=== PATIENT | male | born 1955 | race Caucasian/White ===

== ENCOUNTER → 2019-12-18 16:00 | Outpatient (BNVA) | payer MEDICAID, SELFPAY | PROVIDERS: Family Provider Nurse Practitioner; Visit Provider Nurse Practitioner Family | DX: I10 Essential (primary) hypertension (principal); E55.9 Vitamin D deficiency, unspecified; R53.1 Weakness; F41.9 Anxiety disorder, unspecified; F32.9 Major depressive disorder, single episode, unspecified; F17.200 Nicotine dependence, unspecified, uncomplicated; M19.90 Unspecified osteoarthritis, unspecified site; J44.9 Chronic obstructive pulmonary disease, unspecified | CPT/HCPCS: 80053; 80061; 82306; 85025 ==

== ENCOUNTER 2020-03-13 06:00 | Outpatient (RCR) | payer MEDICAID, SELFPAY | END 2020-04-09 23:59 | disposition home or self-care (01) | LOC: TPT 06:00 | PROVIDERS: Referring Provider Specialist; Visit Provider Specialist | DX: G89.29 Other chronic pain (principal); M54.9 Dorsalgia, unspecified | CPT/HCPCS: 97161 ==

== ENCOUNTER → 2021-01-09 16:39 | Outpatient (BNVA) | payer MEDICAID, SELFPAY | PROVIDERS: Visit Provider Nurse Practitioner Family | DX: E55.9 Vitamin D deficiency, unspecified (principal); I10 Essential (primary) hypertension; G47.30 Sleep apnea, unspecified; F41.9 Anxiety disorder, unspecified; F32.9 Major depressive disorder, single episode, unspecified; J44.9 Chronic obstructive pulmonary disease, unspecified; L30.9 Dermatitis, unspecified | CPT/HCPCS: 80053; 80061; 82306; 82607; 84443; 85025 ==

== ENCOUNTER → 2021-08-25 15:45 | Outpatient (BNVA) | payer MEDICAID, SELFPAY | PROVIDERS: Visit Provider Nurse Practitioner Family | DX: I10 Essential (primary) hypertension (principal) | CPT/HCPCS: 80053; 80061; 82306; 82607; 84443; 85025 ==

== ENCOUNTER → 2022-07-14 16:01 | Outpatient (BNVA) | payer MEDICAID, SELFPAY | PROVIDERS: Visit Provider Nurse Practitioner Family | DX: Z23 Encounter for immunization (principal); F41.9 Anxiety disorder, unspecified; F32.9 Major depressive disorder, single episode, unspecified; I10 Essential (primary) hypertension; J44.9 Chronic obstructive pulmonary disease, unspecified; E55.9 Vitamin D deficiency, unspecified; F17.200 Nicotine dependence, unspecified, uncomplicated; M15.9 Polyosteoarthritis, unspecified; G47.10 Hypersomnia, unspecified | CPT/HCPCS: 80053; 80061; 82306; 82607; 83735; 84443; 85025 ==

== ENCOUNTER → 2023-01-11 16:25 | Outpatient (BNVA) | payer MEDICAID, SELFPAY | PROVIDERS: Visit Provider Nurse Practitioner Family | DX: Z23 Encounter for immunization (principal); F41.9 Anxiety disorder, unspecified; F32.9 Major depressive disorder, single episode, unspecified; I10 Essential (primary) hypertension; J44.9 Chronic obstructive pulmonary disease, unspecified; E55.9 Vitamin D deficiency, unspecified | CPT/HCPCS: 80053; 80061; 82306; 84443; 85025 ==

== ENCOUNTER → 2023-06-15 08:20 | Outpatient (BNVA) | payer MEDICARE, MEDICAID, SELFPAY | PROVIDERS: PCP Nurse Practitioner Family; Visit Provider Nurse Practitioner Family | DX: R53.83 Other fatigue (principal); R11.0 Nausea | CPT/HCPCS: 80053; 85025; 87400; 87426 ==

== ENCOUNTER → 2024-03-27 16:00 | Outpatient (BNVA) | payer MEDICARE, MEDICAID, SELFPAY | PROVIDERS: PCP Nurse Practitioner Family; Visit Provider Nurse Practitioner Family | DX: Z12.5 Encounter for screening for malignant neoplasm of prostate (principal); I10 Essential (primary) hypertension; E55.9 Vitamin D deficiency, unspecified | CPT/HCPCS: 80053; 80061; 82306; 82607; 83735; 84443; 85025; G0103 ==

== ENCOUNTER 2024-05-23 14:03 | Outpatient (CLI) | payer MEDICARE, MEDICAID, SELFPAY | END 2024-05-23 14:04 | disposition home or self-care (01) | PROVIDERS: PCP Nurse Practitioner Family; Visit Provider Nurse Practitioner Family | DX: G47.33 Obstructive sleep apnea (adult) (pediatric) (principal) | CPT/HCPCS: G0399 ==

== ENCOUNTER 2024-12-07 03:20 | Inpatient (IN) | payer MEDICARE, MEDICAID, SELFPAY ==
[2024-12-07] VITALS (35 sets, daily range): BP systolic 89–130; BP diastolic 54–85; PULSE 68–99; RESP 14–18; TEMP 36.2–37.3; O2SAT 90–100; BMI 17.9
--- NOTE | 2024-12-07 03:27 | XRR_ITS ---
PROCEDURE INFORMATION: Exam: XR Right Hip Exam date and time: 12/07/2024 3:40 AM Age: 69 years old Clinical indication: Injury or trauma; Fall; Blunt trauma (contusions or hematomas); Right; Hip; Additional info: Hip pain TECHNIQUE: Imaging protocol: Radiologic exam of the right hip. Views: 1 view hip with pelvis when performed. COMPARISON: MR lumbar spine wo con* [id number] 07/07/2018 3:08 PM FINDINGS: Bones/joints: Intertrochanteric right femoral fracture with coxa vara angulation. No dislocation. Soft tissues: Unremarkable. XR/XR hip RT 2-3V wo/w pel* [id number] IMPRESSION: Intertrochanteric right femoral fracture with coxa vara angulation.
--- NOTE | 2024-12-07 03:44 | ED_ITS ---
HPI - Fall 2 General: Chief Complaint: Fall Stated Complaint: fall Time Seen by Provider: 12/07/24 03:24 History of Present Illness: 69-year-old man with a history of COPD a nd hypertension who presents emergency room by ambulance after a fall with right hip pain. No head injury. No loss of consciousness. No altered mental status. No other injuries. No chest pain. No abdominal pain. Related Data Home Medications ?Medication ?Instructions ?Recorded ?Confirmed oxycodone 15 mg tablet 15 mg PO Q4H PRN 07/14/22 Previous Rx's ?Medication ?Instructions ?Recorded triamcinolone acetonide 0.1 % 1 applic topical BID 14 days #80 01/09/21 topical cream grams nitroglycerin 0.4 mg sublingual See Rx Instructions .R oute 07/20/22 tablet .COMPLEX #25 tabs folic acid 1 mg tablet See Rx Instructions .Route 0 01/11/23 .COMPLEX #30 tabs magnesium oxide 400 mg (241.3 mg See Rx Instructions . Route 01/11/23 magnesium) tablet .COMPLEX #180 tabs ondansetron HCl 8 mg tablet See Rx Instructions .Route 11/21/23 .COMPLEX #30 tabs aspirin 81 mg tablet,delayed See Rx Instructions .Rout e 01/27/24 release .COMPLEX #90 tabs albuterol sulfate 90 mcg/actuation See Rx Instructions .Route 04/10/24 aerosol inhaler (Ventolin HFA) .COMPLEX #18 grams cetirizine 10 mg tablet See Rx Instructions .Route 1 10/14/23 .COMPLEX #90 tabs baclofen 20 mg tablet See Rx Instructions .Route 1 10/30/23 .COMPLEX #180 tabs buspirone 10 mg tablet See Rx Instructions .Route 1 10/30/23 .COMPLEX #270 tabs furosemide 20 mg tablet See Rx Instructions .Route 1 10/30/23 .COMPLEX #90 tabs levetiracetam 750 mg See Rx Instructions .Route 1 10/30/23 tablet,extended release 24 hr .COMPLEX #180 tabs losartan 50 mg tablet See Rx Instructions .Route 1 10/30/23 .COMPLEX #90 tabs lovastatin 40 mg tablet See Rx Instructions .Route 1 10/30/23 .COMPLEX #90 tabs omeprazole 20 mg capsule,delayed 20 mg PO BID #180 cap s 08/30/24 release paroxetine HCl 40 mg tablet See Rx Instructions .Route 08/30/24 .COMPLEX #90 tabs potassium chloride 10 mEq See Rx Instructions .Route 1 10/30/23 capsule,extended release .COMPLEX #90 caps diphenhydramine HCl 25 mg capsule See Rx Instructions .Route 11/01/24 (Banophen) .COMPLEX #60 caps ergocalciferol (vitamin D2) 1,250 See Rx Instructions .Route 11/01/24 mcg (50,000 unit) capsule .COMPLEX #2 caps Allergies Allergy/AdvReac Type Severity Reaction Status Date / Time diclofenac (From Voltaren) Allergy Unknown UNKNOWN Verified 12/07/24 03:29 hydromorphone (From Dilaudid) Allergy Unknown RASH Verified 12/07/24 03:29 hydroxyzine Allergy Unknown SEIZURE Verified 12/07/24 03:29 varenicline (From Chantix) Allergy Unknown UNKNOWN Verified 12/07/24 03:29 venlafaxine (From Effexor) Allergy Unknown UNKNOWN Verified 12/07/24 03:29 Review of Systems 2 Narrative: Constitutional symptoms: Negative except as documented in HPI. Skin symptoms: Negative except as documented in HPI. Eye symptoms: Negative except as documented in HPI. ENMT symptoms: Negative except as documented in HPI. Respiratory symptoms: Negative except as documented in HPI. Cardiovascular symptoms: Negative except as documented in HPI. Gastrointestinal symptoms: Negative except as documented in HPI. Genitourinary symptoms: Negative except as documented in HPI. Musculoskeletal symptoms: Negative except as documented in HPI. Neurologic symptoms: Negative except as documented in HPI. Psychiatric symptoms: Negative except as documented in HPI. Endocrine symptoms: Negative except as documented in HPI. PFSH ED 2 PFSH: Medical History (Updated 12/07/24 @ 04:27 by Leida Mackey MD) Enrolled in chronic care management GERD (gastroesophageal reflux disease) Vitamin D deficiency Osteoarthritis COPD (chronic obstructive pulmonary disease) Hypertension Social History Smoking and tobacco/nicotine status: current every day tobacco/nicotine user (1 PPD) cigarettes Packs smoked per day: 1 Years cigarettes smoked: 43 Second hand smoke exposure: No Alcohol intake: never Substance/Drug Use: never Lives independently: Yes Household members: none service: No Current occupational status: disabled Current gender identity: Male Physical Exam 2 Narrative: EXAM NARRATIVE: General: Alert, no acute distress. Skin: Warm, dry. Head: Normocephalic, atraumatic. Neck: Supple, trachea midline. Eye: Extraocular movements are intact. Ears, nose, mouth and throat: mucosa moist. Cardiovascular: Regular, Normal peripheral perfusion. Respiratory: Lungs are clear to auscultation, respirations are non-labored, breath sounds are equal, Symmetrical chest wall expansion. Gastrointestinal: Soft, Nontender, Non distended Musculoskeletal: Patient has his leg pulled up. Says it hurts to straighten his leg. Pain at the hip. Neurovascularly intact Neurological: Alert and oriented, No focal neurological deficit observed. Psychiatric: Cooperative, appropriate mood & affect. Course 2 Vital Signs: Vital signs: Vital Signs Temperature 98.1 F 12/07/24 03:21 Pulse Rate 68 12/07/24 03:21 Respiratory Rate 18 12/07/24 03:21 Blood Pressure 117/73 12/07/24 03:21 Pulse Oximetry 94 12/07/24 03:21 Oxygen Delivery Me thod Room Air 12/07/24 03:21 MDM - Fall Medical Decision Making Medical decision making: Differential diagnosis for patient with fall and hip pain with deformity including but not limited to and based on the above HPI, review of systems and physical exam: Hip fracture, femur fracture, pelvic fractures including pubic rami and acetabular fractures, hip strain, hip contusion. - Workup: - Hip films ordered to evaluate above. - also presurgical work up done. EKG, Chest xray and lab work X-ray of the right hip and pelvis: Intertrochanteric hip fracture. This was reviewed and interpreted by myself the emergency room physician. I also reviewed the radiology report. Chest x-ray: No acute process. No infiltrate. No pneumothorax. This was reviewed and interpreted by myself the emergency room physician. I also reviewed the radiology report. I reviewed the patient's medical record. Reexamination: Patient remained stable. No increased work of breathing. No altered mental status. No focal motor deficits. Pain has improved some with pain medications. Lab Review: Laboratory results were reviewed and interpreted by myself the emergency room physician. Lab work is fairly unremarkable. No leukocytosis. No anemia. BUN and creatinine are 22 and 1.3 which is mildly elevated. And is slightly above his baseline. Consultation: I spoke with Dr. Chauhan who is on-call for orthopedics who agrees to consultation and planned repair. Consultation: I spoke with Dr. Salgado who is on-call for the hospitalist service who agrees to admission. Assessment and plan: Hip fracture ?IV morphine in the emergency room. -I discussed the patient with the hospitalist on-call who is admitting the patient. - Discussed findings and plan with patient. Answered any questions. - All laboratory values were reviewed and interpreted personally by myself, the ER physician - All imaging was reviewed and interpreted personally by myself, the ER physician. - Evaluation and treatment of this problem were appropriate in the emergency setting Lab Data 12/07/24 03:30 12/07/24 03:30 Radiology Impressions Hip/Pelvis X-Ray 12/07/24 03:27 IMPRESSION: Intertrochanteric right femoral fracture with coxa vara angulation. Laboratory Results WBC 9.99 10^3/uL (3.29-11.43) 12/07/24 03:30 RBC 3.68 10^6/uL (3.85-5.65) L 12/07/24 03:30 Hgb 11.80 g/dL (11.27-16.99) 12/07/24 03:30 Hct 35.2 % (37-53) L 12/07/24 03:30 MCV 95.7 fl (82-101) 12/07/24 03:30 MCH 32.1 pg (27-33) 12/07/24 03:30 MCHC 33.5 g/dL (30-55) 12/07/24 03:30 RDW 13.8 % (12.1-15.1) 12/07/24 03:30 Plt Count 346 10^3/cmm (157-399) 12/07/24 03:30 MPV 8.5 fL (7.4-10.4) 12/07/24 03:30 Neut % (Auto) 61.0 % 12/07/24 03:30 Lymph % (Auto) 29.0 % 12/07/24 03:30 [place] % (Auto) 8.7 % 12/07/24 03:30 Eos % (Auto) 0.6 % 12/07/24 03:30 Baso % (Auto) 0.5 % 12/07/24 03:30 Neut # (Auto) 6.09 10^3/uL (1.8-7.7) 12/07/24 03:30 Lymph # (Auto) 2.9 10^3/uL (0.8-4.8) 12/07/24 03:30 [place] # (Auto) 0.9 10^3/uL (0.2-0.9) 12/07/24 03:30 Eos # (Auto) 0.1 10^3/uL (0.0-0.8) 12/07/24 03:30 Baso # (Auto) 0.1 10^3/uL (0.0-0.1) 12/07/24 03:30 Nucleated RBC % (auto) 0 % 12/07/24 03:30 Nucleated RBCs # 0.0 /100WBC 12/07/24 03:30 PT 13.20 SECONDS (12.1-14.9) 12/07/24 03:30 INR 0.93 (0.8-1.2) 12/07/24 03:30 APTT 25.6 SECONDS (23.9-36.7) 12/07/24 03:30 Sodium 136 mmol/L (136-145) 12/07/24 03:30 Potassium 3.5 mmol/L (3.5-5.1) 12/07/24 03:30 Chloride 100 mmol/L (98-107) 12/07/24 03:30 Carbon Dioxide 22 mmol/L (22-29) 12/07/24 03:30 Anion Gap 17.5 (5-19) 12/07/24 03:30 BUN 22 mg/dL (8-23) 12/07/24 03:30 Creatinine 1.3 mg/dL (0.7-1.2) H 12/07/24 03:30 GFR Calculation 55.1 mL/min (90-130) L 12/07/24 03:30 Glucose 139 mg/dL (65-115) H 12/07/24 03:30 Calculated Osmolality 288 mOsm/kg (285-295) 12/07/24 03:30 Calcium 9.1 mg/dL (8.5-10.5) 12/07/24 03:30 Total Bilirubin 0.3 mg/dL (0.15-1.2) 12/07/24 03:30 AST 19 U/L (0-40) 12/07/24 03:30 ALT 11 U/L (0-41) 12/07/24 03:30 Alkaline Phosphatase 59 U/L (40-130) 12/07/24 03:30 Total Protein 6.9 g/dL (6.6-8.7) 12/07/24 03:30 Albumin 4.2 g/dL (3.5-5.2) 12/07/24 03:30 Globulin 2.7 g/dL (1.3-4.6) 12/07/24 03:30 All radiology interpretation(s) finalized by discharge Discharge Plan Discharge Patient Disposition: Admitted As Inpatient Clinical Impression: Closed hip fracture Condition: Stable Coding Level of Care Code ED Make Up Worker for Timur Baxter
[2024-12-07] MEDS: morphine 4 mg/mL SDV 1 mL IVP (03:47)
[2024-12-07] MEDS: ondansetron 2 mg/ML SDV 2 mL 4 MG IVP (03:47)
--- NOTE | 2024-12-07 04:14 | XRR_ITS ---
PROCEDURE INFORMATION: Exam: XR Chest Exam date and time: 12/07/2024 4:29 AM Age: 69 years old Clinical indication: Other: Planned surgery; Additional info: Hip fracture, planned surgery TECHNIQUE: Imaging protocol: Radiologic exam of the chest. Views: 1 view. COMPARISON: CR XR chest 1V portable [id number] 12/28/2022 12:58 PM FINDINGS: Lungs: Unremarkable. No consolidation. Pleural spaces: Unremarkable. No pleural effusion. No pneumothorax. Heart/Mediastinum: Unremarkable. No cardiomegaly. Bones/joints: Unremarkable. Other findings: New faint rounded opacity projecting over the right inferomedial thorax. XR/XR chest 1V portable [id number] IMPRESSION: 1. New faint rounded opacity projecting over the right inferomedial thorax. Though nonspecific, this may represent a hiatal hernia. Further evaluation could be performed with CT abdomen. 2. No acute cardiopulmonary process.
[2024-12-07 04:22] LABS: Basophils # 0.1 10^3/uL (0.0-0.1); Basophils % 0.5 %; Eosinophils # 0.1 10^3/uL (0.0-0.8); Eosinophils % 0.6 %; Hematocrit 35.2 % (37-53); Lymphocytes # 2.9 10^3/uL (0.8-4.8); Mean Corpuscular HGB Conc 33.5 g/dL (30-55); Mean Corpuscular Hemoglobin 32.1 pg (27-33); Mean Corpuscular Volume 95.7 fl (82-101); Mean Platelet Volume 8.5 fL (7.4-10.4); Monocytes # 0.9 10^3/uL (0.2-0.9); Monocytes % 8.7 %; Neutrophils # 6.09 10^3/uL (1.8-7.7); Nucleated Red Blood Cells % 0 %; Platelet Count 346 10^3/cmm (157-399); Red Blood Count 3.68 10^6/uL (3.85-5.65); Red Cell Distribution Width 13.8 % (12.1-15.1); White Blood Count 9.99 10^3/uL (3.29-11.43)
[2024-12-07 04:27] LABS: INR 0.93 (0.8-1.2); Partial Thromboplastin Time 25.6 SECONDS (23.9-36.7)
--- NOTE | 2024-12-07 04:32 | CTR_ITS ---
PROCEDURE INFORMATION: Exam: CT Right Lower Extremity, Hip Exam date and time: 12/07/2024 5:13 AM Age: 69 years old Clinical indication: Injury or trauma; Fall; Blunt trauma; Hip; Right; Additional info: Fracture, planned surgery TECHNIQUE: Imaging protocol: CT of the right lower extremity without contrast was performed. Exam focused on the hip. Radiation optimization: All CT scans at this facility use at least one of these dose optimization techniques: automated exposure control; mA and/or kV adjustment per patient size (includes targeted exams where dose is matched to clinical indication); or iterative reconstruction. COMPARISON: CR (PELVIS, ) 12/07/2024 3:40 AM RADIATION DOSE METRICS: Total DLP (mGy-cm): 339.21 FINDINGS: Bones/joints: Marked osseous demineralization. Acute mildly comminuted intertrochanteric fracture with coxa vera angulation. There is mild impaction and posterior displacement of the major distal fracture fragments. Femoroacetabular joint is normally aligned and demonstrates mild osteoarthritis. Soft tissues: Probable small superficial soft tissue hematoma lateral to the greater trochanter. Vasculature: Peripheral atherosclerotic disease. CT/CT hip RT wo con* [id number] IMPRESSION: 1. Acute mildly comminuted intertrochanteric fracture with coxa vera angulation. 2. Marked osseous demineralization.
[2024-12-07 04:33] LABS: Alanine Aminotransferase 11 U/L (0-41); Albumin Level 4.2 g/dL (3.5-5.2); Alkaline Phosphatase 59 U/L (40-130); Anion Gap 17.5 (5-19); Aspartate Amino Transferase 19 U/L (0-40); Blood Urea Nitrogen 22 mg/dL (8-23); Calcium 9.1 mg/dL (8.5-10.5); Carbon Dioxide 22 mmol/L (22-29); Chloride 100 mmol/L (98-107); Globulin 2.7 g/dL (1.3-4.6); Glomerular Filtration Rate 55.1 mL/min (90-130); Glucose 139 mg/dL (65-115); Osmolality Calculated 288 mOsm/kg (285-295); Potassium 3.5 mmol/L (3.5-5.1); Sodium 136 mmol/L (136-145); Total Bilirubin 0.3 mg/dL (0.15-1.2); Total Protein 6.9 g/dL (6.6-8.7)
--- NOTE | 2024-12-07 05:27 | ECG_ITS ---
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 Measurements Intervals [place] Rate: 61 P: 79 [place]: 153 QRS: 76 QRSD: 78 T: 80 QT: 391 QTc: 396 Interpretive Statements SINUS RHYTHM ANTEROSEPTAL MYOCARDIAL INFARCTION , OF INDETERMINATE AGE [40+ ms Q WAVE IN V1-V4] Compared to ECG 05/15/2017 03:55:58 No significant changes Electronically Signed On 12-09-2024 07:54:29 EMERGENCY VETERINARY TECHNICIAN by Ed Mares M.D. [email or web address]
--- NOTE | 2024-12-07 05:28 | P.HP_ITS ---
Providers/Chief Complaint 2 Primary Care Provider: MIGUEL ANGEL Connor Chief Complaint: fall History of Present Illness Baldev Rossi is a 69 year old male who presented to the hospital after sustaining a fall. Patient is stating that currently he is staying with his mom to help her out, around 3 AM he went outside to smoke and fell after losing balance and fell on the concrete. In the ER he has been diagnosed with right hip fracture. He patient takes aspirin. He carries history of hypertension, sleep apnea, seizure, anxiety/depression. Patient is denying syncope, chest pain, seizure related activity. Review of Systems 2 Const: Denies: fever(s) Eyes: Denies: change in vision ENMT: Denies: throat pain Card: Denies: chest pain Resp: Reports: dyspnea GI: Denies: abdominal pain Musc: Reports: extremity pain Medications/Allergies Home Medications ?Medication ?Instructions ?Recorded ?Confirmed ?Last Taken ?Type triamcinolone acetonide 0.1 % 1 applic topical BID 14 days #80 01/09/21 07/10/24 Unknown Rx topical cream grams oxycodone 15 mg tablet 15 mg PO Q4H PRN 07/14/22 Unknown History nitroglycerin 0.4 mg sublingual See Rx Instructions .R oute 07/20/22 07/10/24 Unknown Rx tablet .COMPLEX #25 tabs folic acid 1 mg tablet See Rx Instructions .Route 0 01/11/23 07/10/24 Unknown Rx .COMPLEX #30 tabs magnesium oxide 400 mg (241.3 mg See Rx Instructions . Route 01/11/23 07/10/24 Unknown Rx magnesium) tablet .COMPLEX #180 tabs ondansetron HCl 8 mg tablet See Rx Instructions .Route 11/21/23 07/10/24 Unknown Rx .COMPLEX #30 tabs aspirin 81 mg tablet,delayed See Rx Instructions .Rout e 01/27/24 07/10/24 Unknown Rx release .COMPLEX #90 tabs albuterol sulfate 90 mcg/actuation See Rx Instructions .Route 04/10/24 07/10/24 Unknown Rx aerosol inhaler (Ventolin HFA) .COMPLEX #18 grams cetirizine 10 mg tablet See Rx Instructions .Route 1 10/14/23 Unknown Rx .COMPLEX #90 tabs baclofen 20 mg tablet See Rx Instructions .Route 1 10/30/23 Unknown Rx .COMPLEX #180 tabs buspirone 10 mg tablet See Rx Instructions .Route 1 10/30/23 Unknown Rx .COMPLEX #270 tabs furosemide 20 mg tablet See Rx Instructions .Route 1 10/30/23 Unknown Rx .COMPLEX #90 tabs levetiracetam 750 mg See Rx Instructions .Route 1 10/30/23 Unknown Rx tablet,extended release 24 hr .COMPLEX #180 tabs losartan 50 mg tablet See Rx Instructions .Route 1 10/30/23 Unknown Rx .COMPLEX #90 tabs lovastatin 40 mg tablet See Rx Instructions .Route 1 10/30/23 Unknown Rx .COMPLEX #90 tabs omeprazole 20 mg capsule,delayed 20 mg PO BID #180 cap s 08/30/24 Unknown Rx release paroxetine HCl 40 mg tablet See Rx Instructions .Route 08/30/24 Unknown Rx .COMPLEX #90 tabs potassium chloride 10 mEq See Rx Instructions .Route 1 10/30/23 Unknown Rx capsule,extended release .COMPLEX #90 caps diphenhydramine HCl 25 mg capsule See Rx Instructions .Route 11/01/24 Unknown Rx (Banophen) .COMPLEX #60 caps ergocalciferol (vitamin D2) 1,250 See Rx Instructions .Route 11/01/24 Unknown Rx mcg (50,000 unit) capsule .COMPLEX #2 caps Allergies Allergy/AdvReac Type Severity Reaction Status Date / Time diclofenac (From Voltaren) Allergy Unknown UNKNOWN Verified 12/07/24 03:29 hydromorphone (From Dilaudid) Allergy Unknown RASH Verified 12/07/24 03:29 hydroxyzine Allergy Unknown SEIZURE Verified 12/07/24 03:29 varenicline (From Chantix) Allergy Unknown UNKNOWN Verified 12/07/24 03:29 venlafaxine (From Effexor) Allergy Unknown UNKNOWN Verified 12/07/24 03:29 PFSH Acute 2 PFSH: Medical History Enrolled in chronic care management GERD (gastroesophageal reflux disease) Vitamin D deficiency Osteoarthritis COPD (chronic obstructive pulmonary disease) Hypertension Social History Smoking and tobacco/nicotine status: current every day tobacco/nicotine user (1 PPD) cigarettes Packs smoked per day: 1 Years cigarettes smoked: 43 Second hand smoke exposure: No Alcohol intake: never Substance/Drug Use: never Lives independently: Yes Household members: none service: No Current occupational status: disabled Current gender identity: Male Vitals/I&O/Wt Last Vital Signs Temp 98.1 F 12/07/24 03:21 Pulse 68 12/07/24 03:21 Resp 18 12/07/24 03:21 BP 121/75 12/07/24 05:11 Pulse Ox 92 12/07/24 05:11 O2 Del Method Room Air 12/07/24 03:21 12/06/24 12/06/24 12/07/24 14:59 22:59 06:59 Intake Total 0 / 0 Balance 0 / 0 Weight last 48 hrs Weight 63.503 kg Physical Exam 2 Narrative: Patient is awake and alert GCS 15 Cachectic, malnourished Sarcopenia No neurovascular compromise of right leg S1, S2 Currently on room air Hemodynamic stable Dental caries Dehydrated Data 12/07/24 03:30 12/07/24 03:30 A&P Assessment and plan (1) Smoker: (2) Generalized weakness: (3) Sleep apnea: (4) COPD (chronic obstructive pulmonary disease): Qualifiers: COPD type: unspecified COPD Qualified Code(s): J44.9 - Chronic obstructive pulmonary disease, unspecified (5) Hip fracture: Plan Ground-level fall Right hip fracture N.p.o. Takes aspirin History of seizure Start IV fluids Clinical looks dehydrated Sarcopenia with dental caries Continue antiepileptics Dr. Chauhan consulted DVT prophylaxis SCDs Full code Nicotine patch PDMP PDMP Reviewed: Not Reviewed Attestations 2 Medical Necessity Statement*: Anticipating more than 2 midnights Diagnoses Smoker F17.200 Generalized weakness R53.1 Sleep apnea G47.30 Chronic obstructive pulmonary disease, unspecified COPD type J44.9 COPD type: unspecified COPD Hip fracture S72.009A
[2024-12-07] MEDS: HYDROMORPHONE HCL 0.5 MG/0.5 ML INJ 1 MG IVP (05:34)
--- NOTE | 2024-12-07 05:35 | USCV_ITS ---
Baldev Rossi Age: 69 Gender: M : 1955 Exam Date: 12/07/2024 05:43 Ordering Phys: Sarah Salgado MD Technologist: [place] [facility] [place]: pre op BP: / HR: Rhythm: Sinus Technical Quality: MEASUREMENTS (Male / Female) Normal Values FINDINGS Left Ventricle Right Ventricle Right Atrium Left Atrium Mitral Valve Aortic Valve Tricuspid Valve Pulmonic Valve Pericardium Aorta IVC CONCLUSIONS Very limited quality echocardiogram as no echo windows available. Cardiac structures not visualized. Ed Mares MD (Electronically Signed) Final Date: 07 December 2024 18:26 S
[2024-12-07] MEDS: dextrose 5%-sod chloride 0.9% 1,000 ML 75 ML IV ×2 (06:09→20:30)
[2024-12-07 06:34] LABS: Vitamin B12 304 pg/mL (232-1245)
[2024-12-07 06:42] LABS: Estmated Average Glucose 114; Hemoglobin A1C 5.6 % (4.0-6.0)
[2024-12-07] MEDS: diphenhydrAMINE 50 mg/mL SDV 1mL 25 MG IVP (07:14)
[2024-12-07 07:28] LABS: Bilirubin Urine Negative (Negative); Blood Urine Negative (Negative); Glucose Urine UA Negative (Normal); Ketones Urine Trace (Negative); Leukocyte Esterase Urine Negative (Negative); Nitrate Urine Negative (Negative); Protein Urine Trace (Negative); Specific Gravity, Urine 1.024 (1.005-1.030); Urine Appearance Clear (CLEAR); Urine Color Yellow (Yellow); pH Urine 5.5 (5-7)
[2024-12-07 07:47] LABS: UA Manual Slide Review YES
[2024-12-07 07:48] LABS: Bacteria Urine TRACE /hpf; Mucus Urine 2+ /hpf; RBC Urine RARE /hpf (0-2); Squamous Epithelial Cell Urine 0-4 /hpf (0-5); WBC Urine 0-4 /hpf (0-5)
[2024-12-07 07:49] LABS: Add Urine Culture? No
--- NOTE | 2024-12-07 08:50 | P.CONIM_ITS ---
<Statement entered by Juan Chauhan DO - 12/10/24 22:13> Agree with PAs assessment and plan. Patient has a displaced right hip intertrochanteric femur fracture would recommend surgical intervention for right hip trochanteric femur nail. We talked about his treatment options in detail as far as his diagnosis and his treatment options as far as nonoperative and operative invention. At this point in time for immobilization and pain control we talked in detail and patient would like to pursue surgical intervention for these reasons. We also detailed the ins and outs procedure the risk benefits complication alternatives surgery. Risk of surgery include but are not limited to make a better, make it worse, injury to nerves vessels or tendons, hardware failure, hardware prominence/pain, nonunion/malunion, blood loss, infection, wound complications. Understanding risks with surgery patient elects proceed with surgical intervention. All questions answered at this time. Patient elects to proceed with surgical intervention all questions answered at this time. Juan Chauhan DO Orthopedic surgery Providers/Reason For Consult 2 Consulting Physician/Specialty*: Dr. Gissel DO/orthopedic surgeon Reason for Consult*: Right hip fracture Requesting Physician: Dr. Mackey Attending Physician: Sarah Salgado MD Primary Care Provider: MIGUEL ANGEL Connor History of Present Illness History of Present Illness Baldev Rossi is a 69 year old male who presented to the hospital after sustaining a fall. Patient is stating that currently he is staying with his mom to help her out, around 3 AM he went outside to smoke and fell after losing balance and fell on the concrete. Denies any loss of consciousness or any head injury. In the ER he has been diagnosed with right hip fracture. Patient states that he ambulates usually with a walker or cane. Patient is not on a blood thinner. patient states that he did have some nausea and vomiting the day before the fall but says that has resolved. Denies any fevers, chest pain, shortness of breath, palpitations or abdominal pain. Review of Systems 2 General: Reports: 10 or more systems reviewed and unremarkable except in HPI and below Const: Denies: fever(s) or body aches ENMT: Denies: throat pain, ear or mastoid pain or nasal congestion Card: Denies: chest pain or palpitations Resp: Denies: dyspnea, productive cough or non-productive cough GI: Denies: abdominal pain, nausea or vomiting : Denies: dysuria Musc: Reports: extremity pain (right hip) and limited range of motion (right hip) Medications/Allergies Home Medications ?Medication ?Instructions ?Recorded ?Confirmed ?Last Taken ?Type oxycodone 15 mg tablet 15 mg PO Q4H PRN Pain 12/07/24 Unknown History nitroglycerin 0.4 mg sublingual See Rx Instructions .R oute 07/20/22 12/07/24 Unknown Rx tablet .COMPLEX #25 tabs magnesium oxide 400 mg (241.3 mg See Rx Instructions . Route 01/11/23 12/07/24 12/06/24 Rx magnesium) tablet .COMPLEX #180 tabs ondansetron HCl 8 mg tablet See Rx Instructions .Route 11/21/23 12/07/24 Unknown Rx .COMPLEX #30 tabs aspirin 81 mg tablet,delayed See Rx Instructions .Rout e 01/27/24 12/07/24 12/06/24 Rx release .COMPLEX #90 tabs albuterol sulfate 90 mcg/actuation See Rx Instructions .Route 04/10/24 12/07/24 Unknown Rx aerosol inhaler (Ventolin HFA) .COMPLEX #18 grams cetirizine 10 mg tablet See Rx Instructions .Route 1 10/14/23 12/07/24 12/06/24 Rx .COMPLEX #90 tabs baclofen 20 mg tablet See Rx Instructions .Route 1 10/30/23 12/07/24 12/06/24 Rx .COMPLEX #180 tabs buspirone 10 mg tablet See Rx Instructions .Route 1 10/30/23 12/07/24 12/06/24 Rx .COMPLEX #270 tabs furosemide 20 mg tablet See Rx Instructions .Route 1 10/30/23 12/07/24 12/06/24 Rx .COMPLEX #90 tabs levetiracetam 750 mg See Rx Instructions .Route 1 10/30/23 12/07/24 12/06/24 Rx tablet,extended release 24 hr .COMPLEX #180 tabs losartan 50 mg tablet See Rx Instructions .Route 1 10/30/23 12/07/24 12/06/24 Rx .COMPLEX #90 tabs lovastatin 40 mg tablet See Rx Instructions .Route 1 10/30/23 12/07/24 12/06/24 Rx .COMPLEX #90 tabs omeprazole 20 mg capsule,delayed 20 mg PO BID #180 cap s 08/30/24 12/07/24 12/06/24 Rx release paroxetine HCl 40 mg tablet See Rx Instructions .Route 08/30/24 12/07/24 12/06/24 Rx .COMPLEX #90 tabs potassium chloride 10 mEq See Rx Instructions .Route 1 10/30/23 12/07/24 12/06/24 Rx capsule,extended release .COMPLEX #90 caps diphenhydramine HCl 25 mg capsule See Rx Instructions .Route 11/01/24 12/07/24 Unknown Rx (Banophen) .COMPLEX #60 caps ergocalciferol (vitamin D2) 1,250 See Rx Instructions .Route 11/01/24 12/07/24 Unknown Rx mcg (50,000 unit) capsule .COMPLEX #2 caps Allergies Allergy/AdvReac Type Severity Reaction Status Date / Time diclofenac (From Voltaren) Allergy Unknown UNKNOWN Verified 12/07/24 03:29 hydromorphone (From Dilaudid) Allergy Unknown RASH Verified 12/07/24 03:29 hydroxyzine Allergy Unknown SEIZURE Verified 12/07/24 03:29 varenicline (From Chantix) Allergy Unknown UNKNOWN Verified 12/07/24 03:29 venlafaxine (From Effexor) Allergy Unknown UNKNOWN Verified 12/07/24 03:29 Current Medications Generic Name Dose Route Start Last Admin Trade Name Freq PRN Reason Stop Dose Admin Dextrose/Sodium Chloride 1,000 mls @ 75 mls/hr 12/07/24 05:45 12/07/24 06:09 Dextrose 5%-Sod Chloride 0.9% IV 75 mls/hr .[id number] MAIKEL Administration PFSH Acute 2 PFSH: Medical History Enrolled in chronic care management GERD (gastroesophageal reflux disease) Vitamin D deficiency Osteoarthritis COPD (chronic obstructive pulmonary disease) Hypertension Social History Smoking and tobacco/nicotine status: current every day tobacco/nicotine user (1 PPD) cigarettes Packs smoked per day: 1 Years cigarettes smoked: 43 Second hand smoke exposure: No Alcohol intake: never Substance/Drug Use: never Lives independently: Yes Household members: none service: No Current occupational status: disabled Current gender identity: Male Vitals/I&O/Wt Last Vital Signs Temp 98.1 F 12/07/24 03:21 Pulse 82 12/07/24 05:30 Resp 18 12/07/24 03:21 BP 121/75 12/07/24 05:11 Pulse Ox 94 12/07/24 05:30 O2 Del Method Room Air 12/07/24 03:21 12/06/24 12/07/24 12/07/24 22:59 06:59 14:59 Intake Total 0 / 0 Balance 0 / 0 Weight last 48 hrs Weight 140 lb Physical Exam 2 Const: COMMON NORMALS: no acute distress and alert Resp: COMMON NORMALS: normal respiratory effort and No retractions Cardio: COMMON NORMALS: Peripheral pulses 2+ throughout PERIPHERAL PULSES: Peripheral pulses 2+ throughout Extremity: NARRATIVE EXTREMITY EXAM: (Right) lower extremity- Positive logro ll test. Tenderness to palpation right hip. compartments are soft and compressible. Patient can Wiggle toes. Toes are warm and well-perfused. Pedal pulse 2+. Secondary assessment of other extremities. Upper extremities-no visible injuries, abrasions. Full range of motion in shoulders, elbows and wrist. no tenderness to palpation of shoulders or wrist. Left lower extremity-no visible injury or trauma seen. Negative logroll test. Pt can dorsiflex plantarflex foot. Pedal pulse 2+ and patient can wiggle toes. Neuro: SENSORIUM/ORIENTATION: Yes alert Skin: GENERAL SKIN EXAM: dry skin Urinary Catheter Management: Ball Latex: Cath Placed During This Visit: yes Reason for Continuing Indwelling Catheter: Required Immobilization for Trauma or Surgery or Anesthesia Urinary Catheter Date of Insertion: 12/07/24 Urinary Catheter Time of Insertion: 07:19 Data 12/07/24 03:30 12/07/24 03:30 Xray Ortho: Radiologist's impression: Patient: Baldev Rossi Unit #: [id number] : 1955 Age/Sex: 69 / M ADM Date: 12/07/24 Loc: ER Room/Bed: Attending Dr: Ordering Provider/Ordering MD: Leida Mackey MD Date of Service: 12/07/24 Procedure(s): XR hip RT 2-3V wo/w pel* [id number] Accession Number(s): [id number] Report Number: [id number] PROCEDURE INFORMATION: Exam: XR Right Hip Exam date and time: 12/07/2024 3:40 AM Age: 69 years old Clinical indication: Injury or trauma; Fall; Blunt trauma (contusions or hematomas); Right; Hip; Additional info: Hip pain TECHNIQUE: Imaging protocol: Radiologic exam of the right hip. Views: 1 view hip with pelvis when performed. COMPARISON: MR lumbar spine wo con* [id number] 07/07/2018 3:08 PM FINDINGS: Bones/joints: Intertrochanteric right femoral fracture with coxa vara angulation. No dislocation. Soft tissues: Unremarkable. XR/XR hip RT 2-3V wo/w pel* [id number] IMPRESSION: Intertrochanteric right femoral fracture with coxa vara angulation. Dictated By: Velasquez Bee MD A&P Assessment and plan (1) Closed hip fracture: Plan Plan: -Imaging and Labs reviewed -Hospitalist on board for medical management. -VTE prophylaxis -Nonweightbearing on right leg -Pain control -N.p.o. today -Surgery later today for Right hip Trochanteric femur nail PDMP PDMP Reviewed: Not Reviewed Coding Level of Care Code Acute Code for Chg Fwd Diagnoses Closed hip fracture S72.009A
[2024-12-07] MEDS: sennosides-docusate Tablet 1 TAB PO (09:05)
[2024-12-07] MEDS: pantoprazole DR 40 mg Tablet PO (09:05)
--- NOTE | 2024-12-07 09:07 | XR_ITS ---
WS: [id number] Right femur and thigh, AP and lateral views, 12/07/2024 Clinical Data: preop planning right IT fx Comparison: Right hip, 12/07/2024 Findings: The intertrochanteric fracture of the right hip remains in the same position. The femoral head remains within the right acetabulum. The shaft of the femur is intact. The soft tissues are normal. XR/XR femur RT min 2V* [id number] Impression: Intertrochanteric right hip fracture.
[2024-12-07] MEDS: morphine 4 mg/mL SDV 1 mL 2 MG IVP (13:24)
--- NOTE | 2024-12-07 13:38 | PM.MISC ---
Miscellaneous Note Note: Seen this morning. Patient resting comfortably in bed. Discussed with him regarding possibly going to rehab after surgery to which he says he will think about it. Plan for surgery sometime this afternoon as per nursing staff. Blood pressures were low this a.m. however they have improved. Echo results pending.
--- NOTE | 2024-12-07 15:27 | P.ANESASSM_ITS ---
Pre-Anesthetic Assessment Height/Weight: Height 1.88 m Weight 63.503 kg Temp Pulse Resp BP Pulse Ox O2 Del Method O2 Flow Rate 98.1 F 74 16 122/76 96 Nasal Cannula 1 12/07/24 03:21 12/07/24 13:49 12/07/24 13:24 12/07/24 13:49 12/07/24 13:49 12/07/24 14:06 12/07/24 12:30 Operation Date: 12/07/24 18:05 Proposed Procedures p Trochanteric Femoral Nail (Short Nail)(Right) - Juan [place]ka, DO Familial anesthetic complications: None Was Beta Adama taken within 24 hours: N/A Was Clonidine taken within 24 hours: N/A Last intake: > 8 hrs Social Tobacco and No alcohol Exam alert, oriented x 3, clear to auscultation bilaterally and regular rate & rhythm Airway Mallampati: Class III Dentition: full Pulmonary Chronic Obstructive Pulmonary Disease and Sleep Apnea CV/HEM Hypertension and Myocardial Infarction (NTG for 10 years, never needs to take it per patient report) Neuropsych Seizure Anesthetic Plan ASA status: 3 Anesthesia: General Risk of > 500 ml blood loss (7ml/kg in children): No Medications/Allergies Home Medications ?Medication ?Instructions ?Recorded ?Confirmed ?Last Taken ?Type oxycodone 15 mg tablet 15 mg PO Q4H PRN Pain 12/07/24 Unknown History nitroglycerin 0.4 mg sublingual See Rx Instructions .R oute 07/20/22 12/07/24 Unknown Rx tablet .COMPLEX #25 tabs magnesium oxide 400 mg (241.3 mg See Rx Instructions . Route 01/11/23 12/07/24 12/06/24 Rx magnesium) tablet .COMPLEX #180 tabs ondansetron HCl 8 mg tablet See Rx Instructions .Route 11/21/23 12/07/24 Unknown Rx .COMPLEX #30 tabs aspirin 81 mg tablet,delayed See Rx Instructions .Rout e 01/27/24 12/07/24 12/06/24 Rx release .COMPLEX #90 tabs albuterol sulfate 90 mcg/actuation See Rx Instructions .Route 04/10/24 12/07/24 Unknown Rx aerosol inhaler (Ventolin HFA) .COMPLEX #18 grams cetirizine 10 mg tablet See Rx Instructions .Route 1 10/14/23 12/07/2412/06/25 Rx .COMPLEX #90 tabs baclofen 20 mg tablet See Rx Instructions .Route 1 10/30/23 12/07/24 12/06/24 Rx .COMPLEX #180 tabs buspirone 10 mg tablet See Rx Instructions .Route 1 10/30/23 12/07/24 12/06/24 Rx .COMPLEX #270 tabs furosemide 20 mg tablet See Rx Instructions .Route 1 10/30/23 12/07/24 12/06/24 Rx .COMPLEX #90 tabs levetiracetam 750 mg See Rx Instructions .Route 1 10/30/23 12/07/24 12/06/24 Rx tablet,extended release 24 hr .COMPLEX #180 tabs losartan 50 mg tablet See Rx Instructions .Route 1 10/30/23 12/07/24 12/06/24 Rx .COMPLEX #90 tabs lovastatin 40 mg tablet See Rx Instructions .Route 1 10/30/23 12/07/24 12/06/24 Rx .COMPLEX #90 tabs omeprazole 20 mg capsule,delayed 20 mg PO BID #180 cap s 08/30/24 12/07/24 12/06/24 Rx release paroxetine HCl 40 mg tablet See Rx Instructions .Route 08/30/24 12/07/24 12/06/24 Rx .COMPLEX #90 tabs potassium chloride 10 mEq See Rx Instructions .Route 1 10/30/23 12/07/24 12/06/24 Rx capsule,extended release .COMPLEX #90 caps diphenhydramine HCl 25 mg capsule See Rx Instructions .Route 11/01/24 12/07/24 Unknown Rx (Banophen) .COMPLEX #60 caps ergocalciferol (vitamin D2) 1,250 See Rx Instructions .Route 11/01/24 12/07/24 Unknown Rx mcg (50,000 unit) capsule .COMPLEX #2 caps Allergies Allergy/AdvReac Type Severity Reaction Status Date / Time diclofenac (From Voltaren) Allergy Unknown UNKNOWN Verified 12/07/24 03:29 hydromorphone (From Dilaudid) Allergy Unknown RASH Verified 12/07/24 03:29 hydroxyzine Allergy Unknown SEIZURE Verified 12/07/24 03:29 varenicline (From Chantix) Allergy Unknown UNKNOWN Verified 12/07/24 03:29 venlafaxine (From Effexor) Allergy Unknown UNKNOWN Verified 12/07/24 03:29 Current Medications Generic Name Dose Route Start Last Admin Trade Name Gill PRN Reason Stop Dose Admin Dextrose/Sodium Chloride 1,000 mls @ 75 mls/hr 12/07/24 05:45 12/07/24 06:09 Dextrose 5%-Sod Chloride 0.9% IV 75 mls/hr .[id number] MAIKEL Administration Morphine Sulfate 2 mg 12/07/24 05:35 12/07/24 13:24 Morphine 4 Mg/Ml Sdv 1 Ml IVP 2 mg Q4H PRN Administration Hip pain Pantoprazole Sodium 40 mg 12/07/24 09:00 12/07/24 09:[address] 40 Mg Tablet PO 40 mg DAILY MAIKEL Administration Senna/Docusate Sodium 1 tab 12/07/24 09:00 12/07/24 09:05 Sennosides-Docusate Tablet PO 1 tab DAILY MAIKEL Administration PFSH Anesthesia Medical History Enrolled in chronic care management GERD (gastroesophageal reflux disease) Vitamin D deficiency Osteoarthritis COPD (chronic obstructive pulmonary disease) Hypertension Social History Smoking and tobacco/nicotine status: current every day tobacco/nicotine user (1 PPD) cigarettes Packs smoked per day: 1 Years cigarettes smoked: 43 Second hand smoke exposure: No Alcohol intake: never Substance/Drug Use: never Lives independently: Yes Household members: none service: No Current occupational status: disabled Current gender identity: Male Data Anesthesia 12/07/24 03:30 12/07/24 03:30 Short CBC 12/07/24 Range/Units 03:30 WBC 9.99 (3.29-11.43) 10^3/uL Hgb 11.80 (11.27-16.99) g/dL Hct 35.2 L (37-53) % MCV 95.7 (82-101) fl Plt Count 346 (157-399) 10^3/cmm Neut % (Auto) 61.0 % Neut # (Auto) 6.09 (1.8-7.7) 10^3/uL BMP 12/07/24 03:30 Sodium 136 Potassium 3.5 Chloride 100 Carbon Dioxide 22 BUN 22 Creatinine 1.3 H Glucose 139 H Calcium 9.1 Liver Function 12/07/24 Range/Units 03:30 Total Bilirubin 0.3 (0.15-1.2) mg/dL AST 19 (0-40) U/L ALT 11 (0-41) U/L Alkaline Phosphatase 59 (40-130) U/L Albumin 4.2 (3.5-5.2) g/dL Urine 12/07/24 Range/Units 07:17 Urine Color Yellow (Yellow) Urine Appearance Clear (CLEAR) Urine pH 5.5 (5-7) Ur Specific [place] 1.024 (1.005-1.030) Urine Protein Trace A (Negative) Urine Glucose (UA) Negative (Normal) Urine Ketones Trace (Negative) Urine Nitrate Negative (Negative) Urine Bilirubin Negative (Negative) Ur Leukocyte Esterase Negative (Negative) Urine RBC Rare (0-2) /hpf Urine WBC 0-4 H (0-5) /hpf Coags 12/07/24 03:30 PT 13.20 INR 0.93 APTT 25.6 Cardiac Studies: 2 No Data to Display
--- NOTE | 2024-12-07 17:29 | W.PM.OPSUD ---
Surgery/Procedure H&P Update DATE OF PROCEDURE: December 07, 2024 DATE H&P PERFORMED: 12/07/24 H&P UPDATE INFORMATION: I have reviewed H&P completed within last 30 days, I have examined patient prior to procedure and No changes to prior documentation CHANGES TO PREVIOUS DOCUMENTATION: Plan to proceed to the OR today for right hip trochanteric femur nail. Patient understands and agrees with current plan. All questions answered PREOP DIAGNOSIS: Right hip intertrochanteric femur fracture PRIMARY INDICATION FOR PROCEDURE: Right hip intertrochanteric femur fracture PLANNED PROCEDURE: Operation Date: 12/07/24 18:05 Proposed Procedures p Trochanteric Femoral Nail (Short Nail)(Right) - Juan Chauhan DO
[2024-12-07] MEDS: acetaminophen 1,000 MG/100 ML PIGGYBACK 400 MG IV (17:38)
[2024-12-07] MEDS: ketorolac 30 mg/mL INJ IVP (17:38)
[2024-12-07] MEDS: scopolamine 1 mg PATCH 1 PATCH TRANSDERMA (17:39)
[2024-12-07] MEDS: ceFAZolin 2,000 MG in sodium chloride 0.9% (plus) 50 ML 100 MG IV (17:52)
[2024-12-07] MEDS: tranexamic acid 1,000 mg/10mL SDV 1000 MG (17:52)
[2024-12-07 17:53] LABS: Glucose Point of Care 130 mg/dL (70-110)
--- NOTE | 2024-12-07 19:02 | XRR_ITS ---
PROCEDURE INFORMATION: Exam: XR Right Hip Exam date and time: 12/07/2024 7:10 PM Age: 69 years old Clinical indication: Prior surgery; Surgery date: Post-operative (0-2 days); Surgery type: Post op right hip troch nail; Additional info: S/P R hip troch nail TECHNIQUE: Imaging protocol: Radiologic exam of the right hip. Views: 1 view hip with pelvis when performed. COMPARISON: CT hip RT wo con* [id number] 12/07/2024 5:13 AM FINDINGS: Bones/joints: Recently placed right hip trochanteric nail in expected alignment. Soft tissues: Overlying skin john and soft tissue swelling around the hip consistent with recent surgical procedure. XR/XR hip RT 2-3V wo/w pel* [id number] IMPRESSION: Recently placed right hip trochanteric nail in expected alignment.
--- NOTE | 2024-12-07 19:03 | P.BOP_ITS ---
Date of Procedure: 12/07/2024 Surgeon: Juan Chauhan DO Garment Mender(s): Jaxon Chauhan PA-C Procedure(s) performed: right hip trochanteric femur nail Findings of the procedure(s): Patient found to have right intertrochanteric femur fracture underwent procedure as planned without issues or complications Estimated blood loss: 100mL Specimen(s) removed: None Post-operative diagnosis: Right hip intertrochanteric femur fracture
--- NOTE | 2024-12-07 19:11 | P.OP_ITS ---
Operative Report Date of procedure: December 07, 2024 Surgeon: Juan Chauhan DO Contracts Officer: Jaxon Chauhan PA-C: PA was necessary for assistance in this case with leg positioning assistance with reduction, and instrumentation for fixation and well as assistance wound closure and dressing application. Procedure: Preoperative diagnosis: Right displaced hip intertrochanteric femur fracture Post-op diagnosis: Same Procedure done: Right intertrochanteric femur fracture ORIF with cephalomedullary?nail Implants: [place] gamma?nail?short?11 mm x 180 mm x 125 degree Lag screw 10.5 mm x [100 ]?mm Distal locking screw 5 mm x [ 37.5] mm [place] gamma 3 set screw Surgeon: Juan Chauhan DO Estimated blood loss: [100 ]mm IV fluids: See anesthesia record Urine output: See anesthesia record Complications: See operative report Findings: See operative report narrative Condition: stable Disposition: Floor Brief History: Patient sustained a fall and was found to have a right intertrochanteric hip fx.?Pt has?been unable to bear weight, right hip/lower extremity?shortened and externally rotated.? At this point time Pt?was admitted by the hospitalist team and orthopedics was consulted.? Refer to consult note for detailed HPI.? We talked about treatment options as far as nonoperative and operative intervention. Recommend Right hip?trochanteric femur?nail.? At this point time patient would like to pursue surgical intervention for benefits of pain control and earlier mobilization.?? Patient understands the ins and outs of procedure, the risk benefits complication alternatives of surgical nonsurgical treatment options.? Understanding risk of surgery pt?agrees to proceed with surgical intervention all questions answered.? Consent obtained. Procedure: Patient seen evaluated in the preoperative holding area.? Consent was obtained.? Correct extremity was then marked.? Once cleared by anesthesia and the hospitalist team patient was taken back to the operative suite.? Patient underwent anesthesia per the anesthesia department.? Once appropriately anesthetized patient was placed on a fracture [place] table.? Patient was appropriately secured to the bed.? All bony prominences were well-padded.? At this point time patient received appropriate preoperative antibiotics.? Final timeout was performed.? Prior to beginning surgery a standard closed reduction maneuver was placed on the [place] table and large C-arm was brought in.? After performing a closed reduction maneuver there was able to achieve satisfactory reduction of right intertrochanteric femur fracture.? Fracture site did not extend into the subtrochanteric region as result plan was for a?short?nail.?? This point time the right lower extremity was then prepped and draped in standard orthopedic fashion. A standard longitudinal incision was made just proximal to the greater?trochanter roughly 4 cm in length sharp scalpel vision was made through skin and subcutaneous tissue.? I then utilized a blunt Daniel to split? fascia and mobilized directly down to the greater?trochanter.? I then inserted my starting guidewire which was placed appropriate starting position the tip of the greater?trochanter.? This was advanced in AP and lateral films to be in center center position and advanced to the level lesser?trochanter.? This was confirmed to be in center center position on AP and lateral imaging.? Once this was done I then introduced my opening reamer which was then subsequently guide pin removed.? I selected a 11 mm x 180 mm x 125 degree. At this point time the?nail?was then loaded onto the [place] gamma?trochanteric?nail?guide.? This was placed within the canal and confirmed with XR and the setscrew was then gently placed not locked.? The?nail?was then impacted to appropriate depth .? At this point time I then inserted my lag screw guide and subsequently made a small incision through skin and subcutaneous tissue splitting the IT band longitudinally and the guide was placed directly onto bone.? Next I then subsequently placed the guidewire in center center position in the head with an appropriate tip to apex distance this was confirmed with multiple orthogonal images.? Once I was satisfied with my planned lag screw placement I then measured which was? [100 ]?mm.? I then set my cannulated drill and subsequently reamed this into the head at appropriate depth.? I then had my rep open the 10.5 mm x [100 ] mm lag screw which was then opened on the back table and subsequently screwed into place over my cannulated drill guide.? This was placed with excellent tip to apex distance.? Next I then utilized the compressing device and subsequently compressed my fracture after I let off traction.? This had excellent fracture compression and opposition and closing down to my fracture line.? Next I then locked the?nail?by locking my setscrew.? This point time the guidewire as well as the sleeve was then removed.? Next I plan for statically locking the?nail?distally.? This triple sleeve was then placed a small stab incision was made blunt dissection directly down to bone and the guide sleeve was placed and locked directly onto the bone.? I then inserted the drill bit and subsequently drilled bicortically measured appropriate length screw and then placed a [37.5 ]?mm distal interlocking screw and had excellent fixation was appropriate length.? This point time is completed my construct I remove the outer jig and took final images of AP and lateral of the right intertrochanteric femur fracture which showed stable reduction and stable fixation.? Incision was then thoroughly irrigated.? Hemostasis was maintained with electrocautery.? I then once again thoroughly irrigated the incisions and then subsequently closed in layered fashion of 0 Vicryl 2-0 Vicryl and john.? [place] dressings applied.? Patient was then awakened from anesthesia transported onto the hospital bed and taken to PACU in stable condition.? Patient tolerated procedure without complications. Disposition: Patient taken to PACU in stable condition.? Postoperatively,? Patient to receive appropriate discharge instructions as well as pain medication DVT prophylaxis postoperatively.? Patient?will be allowed weightbearing as tolerated right lower extremity.? Will receive appropriate postoperative antibiotics, PT/OT.? Patient to follow-up in the orthopedic office in 2 weeks.? Patients family understands and agrees with current plan.? All questions answered.
--- NOTE | 2024-12-07 19:49 | PM.PACU ---
PACU note Narrative: Patient is a 69-year-old male that just underwent a right hip ORIF with trochanteric femur nail. Pt transferred to PACU in stable condition. Dressing is dry. pt is awake and alert. pt can wiggle toes and plantarflex and dorsiflex foot. distal pulses are palpable toes are warm and well-perfused. Cap refill is normal and under 2 seconds. Sensation to foot is intact. Pain is controlled. Exam: awake Disposition: back to floor
[2024-12-07] MEDS: chlorhexidine gluconate 0.12% Btl 473 mL 30 ML MUCOUS MEM (21:51)
[2024-12-07] MEDS: oxyCODONE 5 mg IR Tab/Cap 15 MG PO (22:52)
[2024-12-08] VITALS (12 sets, daily range): BP systolic 99–111; BP diastolic 62–71; PULSE 69–89; RESP 15–20; TEMP 36.5–37.1; O2SAT 93–98
[2024-12-08] MEDS: ceFAZolin 2,000 MG in sodium chloride 0.9% (plus) 50 ML 100 MG IV ×3 (01:37→17:26)
[2024-12-08] MEDS: tranexamic acid 1,000 MG/100 ML PREMIX 600 MG IV (02:22)
[2024-12-08 06:00] LABS: Basophils % 0.1 %; Hematocrit 25.5 % (37-53); Lymphocytes # 1.5 10^3/uL (0.8-4.8); Lymphocytes % 14.4 %; Mean Corpuscular HGB Conc 33.3 g/dL (30-55); Mean Corpuscular Hemoglobin 32.2 pg (27-33); Mean Corpuscular Volume 96.6 fl (82-101); Mean Platelet Volume 8.6 fL (7.4-10.4); Monocytes # 1.3 10^3/uL (0.2-0.9); Monocytes % 12.8 %; Neutrophils # 7.56 10^3/uL (1.8-7.7); Neutrophils % 72.3 %; Nucleated Red Blood Cells % 0 %; Platelet Count 234 10^3/cmm (157-399); Red Blood Count 2.64 10^6/uL (3.85-5.65); White Blood Count 10.46 10^3/uL (3.29-11.43)
[2024-12-08] MEDS: oxyCODONE 5 mg IR Tab/Cap 15 MG PO ×4 (06:21→23:16)
[2024-12-08 06:27] LABS: Anion Gap 12.3 (5-19); Blood Urea Nitrogen 22 mg/dL (8-23); Calcium 8.4 mg/dL (8.5-10.5); Carbon Dioxide 24 mmol/L (22-29); Chloride 105 mmol/L (98-107); Glomerular Filtration Rate 60.4 mL/min (90-130); Glucose 153 mg/dL (65-115); Magnesium 1.9 mg/dL (1.7-2.3); Osmolality Calculated 290 mOsm/kg (285-295); Potassium 4.3 mmol/L (3.5-5.1); Sodium 137 mmol/L (136-145)
[2024-12-08] MEDS: iron polysaccharide complex 150 mg Capsule PO ×2 (08:22→17:26)
[2024-12-08] MEDS: multivitamin therapeutic Tablet 1 TAB PO (08:22)
[2024-12-08] MEDS: sennosides-docusate Tablet 1 TAB PO (08:22)
[2024-12-08] MEDS: calcium carb-vit d 600mg/400unit 1 Tablet 1 EACH PO ×2 (08:22→17:26)
[2024-12-08] MEDS: pantoprazole DR 40 mg Tablet PO (08:22)
[2024-12-08] MEDS: enoxaparin 30 mg/0.3 mL Syringe SUBCUT (08:22)
[2024-12-08] MEDS: chlorhexidine gluconate 0.12% Btl 473 mL 30 ML MUCOUS MEM ×2 (08:23→21:36)
[2024-12-08] MEDS: dextrose 5%-sod chloride 0.9% 1,000 ML 75 ML IV (11:12)
--- NOTE | 2024-12-08 13:09 | P.PN_ITS ---
Subjective 2 Subjective: seen today had surgery yesterday he states he is feeling better and would like to go to rehab Vitals/I&O/Wt Last Vital Signs Temp 97.7 F 12/08/24 12:36 Pulse 78 12/08/24 12:36 Resp 16 12/08/24 12:54 BP 111/69 12/08/24 12:36 Pulse Ox 94 12/08/24 12:36 O2 Del Method Room Air 12/08/24 12:36 O2 Flow Rate 4 12/07/24 19:25 12/07/24 12/08/24 12/08/24 22:59 06:59 14:59 Intake Total 1390 / 1390 510 / 1900 1050 / 1050 Output Total 100 / 100 500 / 600 Balance 1290 / 1290 10 / 1300 1050 / 1050 Weight last 48 hrs Weight 66.406 kg Weight 63.503 kg Physical Exam 2 Narrative: Patient is awake and alert GCS 15 Cachectic, malnourished Sarcopenia sitting up in chair AO x3 lungs clear to ausculation b/l S1, S2 Currently on room air Hemodynamic stable Urinary Catheter Management: Ball Latex: Cath Placed During This Visit: yes Reason for Continuing Indwelling Catheter: Perioperative Use in Selected Surgeries Urinary Catheter Date of Insertion: 12/07/24 Urinary Catheter Time of Insertion: 07:19 Data 12/08/24 05:15 12/08/24 05:15 A&P Assessment and plan (1) Smoker: (2) Generalized weakness: (3) Sleep apnea: (4) COPD (chronic obstructive pulmonary disease): Qualifiers: COPD type: unspecified COPD Qualified Code(s): J44.9 - Chronic obstructive pulmonary disease, unspecified (5) Hip fracture: (6) Postoperative anemia: Plan Ground-level fall Right hip fracture N.p.o. Takes aspirin History of seizure Start IV fluids Clinical looks dehydrated Sarcopenia with dental caries Continue antiepileptics Dr. Chauhan consulted DVT prophylaxis SCDs Full code Nicotine patch 12/08/2024 hemoglobin 8.5 today, baseline probably 11. will continue to monitor transfuse for hb < 7 vitals stable echo - no good windows - pt feels better today continue PT/OT will need rehab [place] [facility] PDMP PDMP Reviewed: Not Reviewed Attestations 2 Medical Necessity Statement*: requires continued hospitaliton for monitoring of hb and post op care, [place] need rehab [place] Diagnoses Smoker F17.200 Generalized weakness R53.1 Sleep apnea G47.30 Chronic obstructive pulmonary disease, unspecified COPD type J44.9 COPD type: unspecified COPD Hip fracture S72.009A Postoperative anemia D64.9
--- NOTE | 2024-12-08 13:14 | PM.PN ---
Documented by User: RANDY Lopez 12/08/24 13:22 Subjective Subjective: Patient is a 69-year-old male that is 1 day postop right hip ORIF with short Trochanteric femoral nail. No acute events overnight. Patient did physical therapy today and physical therapy recommended patient will need placement in a residential facility. Denies any fevers. He has been able to tolerate PO food and fluids. Pain is controlled. Vitals/I&O/Wt Last Vital Signs Temp 97.7 F 12/08/24 12:36 Pulse 78 12/08/24 12:36 Resp 16 12/08/24 12:54 BP 111/69 12/08/24 12:36 Pulse Ox 94 12/08/24 12:36 O2 Del Method Room Air 12/08/24 12:36 O2 Flow Rate 4 12/07/24 19:25 12/07/24 12/08/24 12/08/24 22:59 06:59 14:59 Intake Total 1390 / 1390 510 / 1900 1050 / 1050 Output Total 100 / 100 500 / 600 Balance 1290 / 1290 10 / 1300 1050 / 1050 Weight last 48 hrs Weight 146 lb 6.4 oz Weight 140 lb Physical Exam Const: COMMON NORMALS: no acute distress and alert Resp: COMMON NORMALS: normal respiratory effort and No retractions Cardio: COMMON NORMALS: Peripheral pulses 2+ throughout PERIPHERAL PULSES: Peripheral pulses 2+ throughout Extremity: NARRATIVE EXTREMITY EXAM: Patient is lying comfortably on exam bed went into the room. He appears in no acute distress or pain. Right hip?dressings are dry and intact. Some mild postop swelling noted but compartments are soft and compressible. Patient able to slightly elevate right leg off the bed with mild pain. Patient has sensation to foot and is neurovasc intact distally. Pedal pulse 1+. Normal cap refill under 2 seconds. Patient can dorsiflex and plantarflex foot. Neuro: SENSORIUM/ORIENTATION: Yes alert Skin: GENERAL SKIN EXAM: dry skin Urinary Catheter Management: Ball Latex: Cath Placed During This Visit: yes Reason for Continuing Indwelling Catheter: Perioperative Use in Selected Surgeries Urinary Catheter Date of Insertion: 12/07/24 Urinary Catheter Time of Insertion: 07:19 Data 12/09/24 04:22 12/09/24 04:22 Xray Ortho: Radiologist's impression: FINDINGS: Bones/joints: Recently placed right hip trochanteric nail in expected alignment. Soft tissues: Overlying skin john and soft tissue swelling around the hip consistent with recent surgical procedure. XR/XR hip RT 2-3V wo/w pel* [id number] IMPRESSION: Recently placed right hip trochanteric nail in expected alignment. Dictated By: Nabeel Jansen DO A&P Assessment and plan (1) Closed hip fracture: Plan Plan: -Imaging and Labs reviewed -Hospitalist on board for medical management. -VTE prophylaxis per hospitalist -Weight-bear as tolerated on right leg -Pain control -PT/OT Patient is a 69-year-old male that is 1 day postop right hip ORIF. Physical therapy worked with patient today and says he will need residential facility. We will see patient tomorrow for reevaluation. PDMP PDMP Reviewed: Not Reviewed Attestations Medical Necessity Statement*: Ongoing care for right hip fracture Coding Level of Care Code Acute Code for Chg Fwd Diagnoses Closed hip fracture S72.009A Documented by User: Juan Chauhan DO 12/09/24 23:17 Physical Exam Urinary Catheter Management: Ball Latex: Cath Placed During This Visit: yes Data 12/09/24 04:22 12/09/24 04:22 A&P Assessment and plan (1) Closed hip fracture: Plan Plan: -Imaging and Labs reviewed -Hospitalist on board for medical management. -VTE prophylaxis per hospitalist -Weight-bear as tolerated on right leg -Pain control -PT/OT -Change dressing as needed -X-rays reviewed -Labs reviewed -Case management for discharge planning Patient is a 69-year-old male that is 1 day postop right hip ORIF. Physical therapy worked with patient today and says he will need residential facility. We will see patient tomorrow for reevaluation. Orthopedic attending addendum: Reviewed and agree with PAs assessment and plan. At this point time orthopedic surgery team will continue to follow along with patient planning on rehab facility at discharge will follow-up in 2 weeks upon discharge. All questions answered. PDMP PDMP Reviewed: Not Reviewed Coding Level of Care Code Acute Code for Chg Fwd Diagnoses Closed hip fracture S72.009A
[2024-12-08] MEDS: morphine 4 mg/mL SDV 1 mL 2 MG IVP (13:27)
--- NOTE | 2024-12-08 14:30 | PC.SOCIAL ---
IMM updated IMM dated and initialed, Copy given to patient and copy placed in chart.
[2024-12-08 17:40] LABS: Basophils % 0.4 %; Eosinophils # 0.1 10^3/uL (0.0-0.8); Eosinophils % 0.9 %; Hematocrit 24.6 % (37-53); Mean Corpuscular HGB Conc 32.5 g/dL (30-55); Mean Corpuscular Hemoglobin 31.9 pg (27-33); Mean Platelet Volume 8.4 fL (7.4-10.4); Monocytes # 1.3 10^3/uL (0.2-0.9); Monocytes % 11.5 %; Neutrophils # 6.92 10^3/uL (1.8-7.7); Neutrophils % 60.8 %; Nucleated Red Blood Cells % 0 %; Platelet Count 189 10^3/cmm (157-399); Red Blood Count 2.51 10^6/uL (3.85-5.65); Red Cell Distribution Width 13.9 % (12.1-15.1); White Blood Count 11.36 10^3/uL (3.29-11.43)
[2024-12-09] VITALS (12 sets, daily range): BP systolic 97–118; BP diastolic 63–74; PULSE 75–94; RESP 16–18; TEMP 36.6–37.7; O2SAT 91–94; BMI 18.8
[2024-12-09] MEDS: morphine 4 mg/mL SDV 1 mL 2 MG IVP ×3 (00:04→21:11)
[2024-12-09] MEDS: dextrose 5%-sod chloride 0.9% 1,000 ML 75 ML IV (00:06)
[2024-12-09 05:10] LABS: Basophils # 0.1 10^3/uL (0.0-0.1); Basophils % 0.6 %; Eosinophils # 0.3 10^3/uL (0.0-0.8); Eosinophils % 2.2 %; Hematocrit 26.6 % (37-53); Lymphocytes % 24.9 %; Mean Corpuscular Hemoglobin 31.7 pg (27-33); Mean Corpuscular Volume 99.3 fl (82-101); Mean Platelet Volume 8.9 fL (7.4-10.4); Monocytes # 1.3 10^3/uL (0.2-0.9); Monocytes % 10.9 %; Neutrophils # 7.33 10^3/uL (1.8-7.7); Neutrophils % 61.1 %; Nucleated Red Blood Cells % 0 %; Platelet Count 233 10^3/cmm (157-399); Red Blood Count 2.68 10^6/uL (3.85-5.65); Red Cell Distribution Width 13.8 % (12.1-15.1); White Blood Count 11.99 10^3/uL (3.29-11.43)
[2024-12-09 05:32] LABS: Anion Gap 15.7 (5-19); Blood Urea Nitrogen 18 mg/dL (8-23); Calcium 8.7 mg/dL (8.5-10.5); Carbon Dioxide 20 mmol/L (22-29); Chloride 100 mmol/L (98-107); Glomerular Filtration Rate 74.5 mL/min (90-130); Glucose 84 mg/dL (65-115); Osmolality Calculated 275 mOsm/kg (285-295); Potassium 3.7 mmol/L (3.5-5.1); Sodium 132 mmol/L (136-145)
--- NOTE | 2024-12-09 05:50 | PC.NURSE ---
pt denied need to void, nurse instructed pt to void, pt voided 200 ml, bladder scan post void showed 223, Dr. Salgado notified, order to stop fluids and straight cath. straight cath with 225 ml urine return
[2024-12-09] MEDS: oxyCODONE 5 mg IR Tab/Cap 15 MG PO ×3 (06:03→16:06)
[2024-12-09] MEDS: calcium carb-vit d 600mg/400unit 1 Tablet 1 EACH PO ×2 (08:00→17:06)
[2024-12-09] MEDS: sennosides-docusate Tablet 1 TAB PO (08:00)
[2024-12-09] MEDS: pantoprazole DR 40 mg Tablet PO (08:01)
[2024-12-09] MEDS: multivitamin therapeutic Tablet 1 TAB PO (08:01)
[2024-12-09] MEDS: enoxaparin 30 mg/0.3 mL Syringe SUBCUT (08:01)
[2024-12-09] MEDS: iron polysaccharide complex 150 mg Capsule PO ×2 (08:01→17:06)
--- NOTE | 2024-12-09 12:08 | P.PN_ITS ---
Subjective 2 Subjective: Patient seen and examined today he is recovering well will require rehab facility at discharge, worked with therapy currently sitting up in chair Vitals/I&O/Wt Last Vital Signs Temp 99.2 F 12/09/24 11:42 Pulse 91 12/09/24 11:42 Resp 16 12/09/24 11:42 BP 105/63 12/09/24 11:42 Pulse Ox 93 12/09/24 11:42 O2 Del Method Room Air 12/09/24 11:42 O2 Flow Rate 4 12/07/24 19:25 12/08/24 12/09/24 12/09/24 22:59 06:59 14:59 Intake Total 290 / 1340 1208.5 / 2548.5 480 / 480 Output Total 200 / 200 200 / 400 Balance 90 / 1140 1008.5 / 2148.5 480 / 480 Weight last 48 hrs Weight 147 lb Weight 146 lb 6.4 oz Physical Exam 2 Const: COMMON NORMALS: no acute distress and alert Resp: COMMON NORMALS: normal respiratory effort and No retractions Cardio: COMMON NORMALS: Peripheral pulses 2+ throughout PERIPHERAL PULSES: Peripheral pulses 2+ throughout Extremity: NARRATIVE EXTREMITY EXAM: Patient is sitting up in chair. He appears in no acute distress Right hip?dressings are dry and intact. Some mild postop swelling noted but compartments are soft and compressible. Patient has sensation to foot and is neurovasc intact distally. RLE warm and well-perfused. Patient can dorsiflex and plantarflex foot. Neuro: SENSORIUM/ORIENTATION: Yes alert Skin: GENERAL SKIN EXAM: dry skin Urinary Catheter Management: Ball Latex: Cath Placed During This Visit: yes, but has since been removed by the nurse Reason for Continuing Indwelling Catheter: Decision to DC Catheter Urinary Catheter Date of Insertion: 12/07/24 Urinary Catheter Time of Insertion: 07:19 Date Urinary Catheter Removed: 12/08/24 Time Urinary Catheter Discontinued: 06:40 Data 12/09/24 04:22 12/09/24 04:22 A&P Assessment and plan (1) Closed hip fracture: Plan Plan: -Imaging and Labs reviewed -Hospitalist on board for medical management. -VTE prophylaxis per hospitalist -Weight-bear as tolerated on right leg -Pain control -PT/OT -Postop x-rays reviewed -Ice as needed -Follow-up in 2 weeks -Change dressing as needed Labs reviewed -Case management patient planning on SNF placement. Patient is a 69-year-old male that is 2 day postop right hip ORIF. Physical therapy worked with patient today and says he will need long term facility. Patient at this point in time stable from orthopedic standpoint. Orthopedic surgery team will sign off patient at this time follow peripherally. If there is any question pertaining to patient's care for free to contact orthopedics on-call patient will have appropriate discharge instructions and will follow-up in 2 weeks. Patient understands and agrees with current plan. All questions answered. PDMP PDMP Reviewed: Not Reviewed Attestations 2 Medical Necessity Statement*: Ongoing care status post right hip trochanteric femur nail Coding Level of Care Code Acute Code for Chg Fwd Diagnoses Closed hip fracture S72.009A
--- NOTE | 2024-12-09 13:02 | PM.PN ---
Subjective Subjective: seen today Patient complains of having hip spasms. He takes baclofen at home. He says Flexeril does not help. He states is difficult for him to move his leg because of the spasm. He was evaluated by physical therapy yesterday and long-term was recommended. This morning hemoglobin had 8.5. On admission it was 11 range. Vitals/I&O/Wt Last Vital Signs Temp 99.2 F 12/09/24 11:42 Pulse 91 12/09/24 11:42 Resp 16 12/09/24 11:42 BP 105/63 12/09/24 11:42 Pulse Ox 93 12/09/24 11:42 O2 Del Method Room Air 12/09/24 11:42 O2 Flow Rate 4 12/07/24 19:25 12/08/24 12/09/24 12/09/24 22:59 06:59 14:59 Intake Total 290 / 1340 1208.5 / 2548.5 480 / 480 Output Total 200 / 200 200 / 400 Balance 90 / 1140 1008.5 / 2148.5 480 / 480 Weight last 48 hrs Weight 66.678 kg Weight 66.406 kg Physical Exam Narrative: Patient is awake and alert GCS 15 Cachectic, malnourished sitting up in chair AO x3 lungs clear to ausculation b/l S1, S2 Currently on room air Hemodynamic stable Surgical bandage in place. Urinary Catheter Management: Ball Latex: Cath Placed During This Visit: yes, but has since been removed by the nurse Reason for Continuing Indwelling Catheter: Decision to DC Catheter Urinary Catheter Date of Insertion: 12/07/24 Urinary Catheter Time of Insertion: 07:19 Date Urinary Catheter Removed: 12/08/24 Time Urinary Catheter Discontinued: 06:40 Data 12/09/24 04:22 12/09/24 04:22 A&P Assessment and plan (1) Smoker: (2) Generalized weakness: (3) Sleep apnea: (4) COPD (chronic obstructive pulmonary disease): Qualifiers: COPD type: unspecified COPD Qualified Code(s): J44.9 - Chronic obstructive pulmonary disease, unspecified (5) Hip fracture: (6) Postoperative anemia: Plan Ground-level fall Right hip fracture N.p.o. Takes aspirin History of seizure Start IV fluids Clinical looks dehydrated Sarcopenia with dental caries Continue antiepileptics Dr. Chauhan consulted DVT prophylaxis SCDs Full code Nicotine patch 12/08/2024 hemoglobin 8.5 today, baseline probably 11. will continue to monitor transfuse for hb < 7 vitals stable echo - no good windows - pt feels better today continue PT/OT will need rehab at [facility] 12/09/2024 Hemoglobin 8.5 this morning. Did drop to 8.0. Transfuse for hemoglobin less than 7. Patient complaining of hip spasm. Will order home baclofen at this time. He required maximum assistance for pivoting bed transfer, stand to sit and sit to stand. He was unable to ambulate and therefore he did stand with four-wheel walker. He will need rehab going forward. Patient is unsafe to go home alone with home health. He will need rehab at discharge. PDMP PDMP Reviewed: Not Reviewed Attestations Medical Necessity Statement*: requires continued hospitaliton for monitoring of hb and post op care, will need rehab [place] [facility] Diagnoses Smoker F17.200 Generalized weakness R53.1 Sleep apnea G47.30 Chronic obstructive pulmonary disease, unspecified COPD type J44.9 COPD type: unspecified COPD Hip fracture S72.009A Postoperative anemia D64.9
[2024-12-09] MEDS: BuSPIRONE 10 mg Tablet PO ×2 (14:05→21:12)
--- NOTE | 2024-12-09 14:19 | PC.NURSE ---
Rounded on patient and found a tipped over dr.pepper melara laying beside the bed with ashes spilled out of it. Pt was asked if he had tobacco and pt stated he smoked a cigarette in the room a few minutes prior. Nurse educated pt on the danger of smoking inside the hospital and confiscated the reservations sales supervisor and package of cigarettes. There were 18 cigarettes in the carton. They were placed in the pyxis.
[2024-12-09] MEDS: baclofen 10 mg Tablet 20 MG PO (17:06)
[2024-12-09] MEDS: chlorhexidine gluconate 0.12% Btl 473 mL 30 ML MUCOUS MEM (21:16)
[2024-12-10] VITALS (13 sets, daily range): BP systolic 112–146; BP diastolic 56–73; PULSE 74–93; RESP 16–18; TEMP 36.6–36.9; O2SAT 90–96
[2024-12-10] MEDS: oxyCODONE 5 mg IR Tab/Cap 15 MG PO ×2 (02:31→10:07)
[2024-12-10 03:59] LABS: Basophils # 0.1 10^3/uL (0.0-0.1); Basophils % 0.6 %; Eosinophils # 0.2 10^3/uL (0.0-0.8); Eosinophils % 1.7 %; Hematocrit 22.2 % (37-53); Lymphocytes # 2.4 10^3/uL (0.8-4.8); Lymphocytes % 21.5 %; Mean Corpuscular HGB Conc 32.4 g/dL (30-55); Mean Corpuscular Hemoglobin 31.7 pg (27-33); Mean Corpuscular Volume 97.8 fl (82-101); Mean Platelet Volume 8.8 fL (7.4-10.4); Monocytes # 1.4 10^3/uL (0.2-0.9); Monocytes % 12.6 %; Neutrophils # 6.91 10^3/uL (1.8-7.7); Neutrophils % 63.2 %; Nucleated Red Blood Cells % 0 %; Platelet Count 241 10^3/cmm (157-399); Red Blood Count 2.27 10^6/uL (3.85-5.65); White Blood Count 10.94 10^3/uL (3.29-11.43)
[2024-12-10 04:26] LABS: Blood Urea Nitrogen 18 mg/dL (8-23); Calcium 8.7 mg/dL (8.5-10.5); Carbon Dioxide 23 mmol/L (22-29); Chloride 106 mmol/L (98-107); Glomerular Filtration Rate 84.2 mL/min (90-130); Glucose 84 mg/dL (65-115); Magnesium 1.8 mg/dL (1.7-2.3); Osmolality Calculated 287 mOsm/kg (285-295); Sodium 138 mmol/L (136-145)
[2024-12-10] MEDS: enoxaparin 30 mg/0.3 mL Syringe SUBCUT (08:30)
[2024-12-10] MEDS: pantoprazole DR 40 mg Tablet PO (08:31)
[2024-12-10] MEDS: BuSPIRONE 10 mg Tablet PO ×3 (08:31→20:31)
[2024-12-10] MEDS: sennosides-docusate Tablet 1 TAB PO (08:31)
[2024-12-10] MEDS: iron polysaccharide complex 150 mg Capsule PO ×2 (08:31→18:46)
[2024-12-10] MEDS: calcium carb-vit d 600mg/400unit 1 Tablet 1 EACH PO ×2 (08:31→18:46)
[2024-12-10] MEDS: multivitamin therapeutic Tablet 1 TAB PO (08:32)
[2024-12-10] MEDS: chlorhexidine gluconate 0.12% Btl 473 mL 30 ML MUCOUS MEM ×4 (08:32→20:31)
[2024-12-10] MEDS: baclofen 10 mg Tablet 20 MG PO ×2 (08:33→18:46)
[2024-12-10] MEDS: mupirocin oint 22 gm 1 APPLIC NASAL ×2 (08:36→18:46)
--- NOTE | 2024-12-10 12:04 | P.PN_ITS ---
Subjective 2 Subjective: Patient seen and examined, working with therapy. Planning for rehab facility at discharge Vitals/I&O/Wt Last Vital Signs Temp 98.2 F 12/10/24 11:40 Pulse 81 12/10/24 11:40 Resp 18 12/10/24 11:40 BP 115/68 12/10/24 11:40 Pulse Ox 93 12/10/24 11:40 O2 Del Method Room Air 12/10/24 08:10 O2 Flow Rate 4 12/07/24 19:25 12/09/24 12/10/24 12/10/24 22:59 06:59 14:59 Intake Total 480 / 1200 750 / 1950 480 / 480 Balance 480 / 1200 750 / 1950 480 / 480 Weight last 48 hrs Weight 146 lb 9.6 oz Weight 147 lb Physical Exam 2 Const: COMMON NORMALS: no acute distress and alert Resp: COMMON NORMALS: normal respiratory effort and No retractions Cardio: COMMON NORMALS: Peripheral pulses 2+ throughout PERIPHERAL PULSES: Peripheral pulses 2+ throughout Extremity: NARRATIVE EXTREMITY EXAM: Patient is sitting up in chair. He appears in no acute distress Right hip?dressings are dry and intact. Some mild postop swelling noted but compartments are soft and compressible. Tenderness to palpation of right hip. Patient has sensation to foot and is neurovasc intact distally. RLE warm and well-perfused. Patient can dorsiflex and plantarflex foot. Neuro: SENSORIUM/ORIENTATION: Yes alert Skin: GENERAL SKIN EXAM: dry skin Urinary Catheter Management: Ball Latex: Cath Placed During This Visit: yes, but has since been removed by the nurse Reason for Continuing Indwelling Catheter: Decision to DC Catheter Urinary Catheter Date of Insertion: 12/07/24 Urinary Catheter Time of Insertion: 07:19 Date Urinary Catheter Removed: 12/08/24 Time Urinary Catheter Discontinued: 06:40 Data 12/12/24 05:46 12/12/24 05:46 Other Labs: 12/11/2019 5 AM labs hemoglobin 7.2 A&P Assessment and plan (1) Closed hip fracture: Plan Plan: -Imaging and Labs reviewed-7.2 hemoglobin patient to receive 1 unit PRBC per primary today -Hospitalist on board for medical management. -VTE prophylaxis per hospitalist -Weight-bear as tolerated on right leg -Pain control -PT/OT -Ice as needed -Follow-up in 2 weeks -Change dressing as needed Labs reviewed -Case management patient planning on SNF placement. Patient is a 69-year-old male that is 3 day postop right hip ORIF. Physical therapy worked with patient today and says he will need retirement facility. Patient at this point in time stable from orthopedic standpoint. I did reevaluate patient has had a drop in hemoglobin clinic examination is stable, no evidence of dressing saturation. Patient receiving 1 unit PRBC today. No further intervention from orthopedic standpoint. Orthopedic surgery team will sign off patient at this time follow peripherally. If there is any question pertaining to patient's care for free to contact orthopedics on-call patient will have appropriate discharge instructions and will follow-up in 2 weeks. Patient understands and agrees with current plan. All questions answered. PDMP PDMP Reviewed: Last Reviewed 12/12/24 17:44 EST by Juan Chauhan DO Atttriniations 2 Medical Necessity Statement*: Ongoing care status post right hip cephalomedullary nail, 7.2 today received 1 unit PRBC Coding Level of Care Code Acute Code for Chg Fwd Diagnoses Closed hip fracture S72.009A
--- NOTE | 2024-12-10 13:04 | P.PN_ITS ---
Subjective 2 Subjective: Seen this morning. Hemoglobin dropped to 7.2 this morning. 1 unit of blood ordered. Have requested to check CBC 2 hours posttransfusion. Vitals/I&O/Wt Last Vital Signs Temp 98.3 F 12/10/24 12:00 Pulse 81 12/10/24 12:00 Resp 17 12/10/24 12:00 BP 115/64 12/10/24 12:00 Pulse Ox 94 12/10/24 12:00 O2 Del Method Room Air 12/10/24 12:00 O2 Flow Rate 4 12/07/24 19:25 12/09/24 12/10/24 12/10/24 22:59 06:59 14:59 Intake Total 480 / 1200 750 / 1950 830 / 830 Output Total 350 / 350 Balance 480 / 1200 750 / 1950 480 / 480 Weight last 48 hrs Weight 66.497 kg Weight 66.678 kg Physical Exam 2 Narrative: Patient is awake and alert GCS 15 Cachectic, malnourished sitting up in chair AO x3 lungs clear to ausculation b/l S1, S2 Currently on room air Hemodynamic stable Surgical bandage in place. Urinary Catheter Management: Ball Latex: Cath Placed During This Visit: yes, but has since been removed by the nurse Reason for Continuing Indwelling Catheter: Decision to DC Catheter Urinary Catheter Date of Insertion: 12/07/24 Urinary Catheter Time of Insertion: 07:19 Date Urinary Catheter Removed: 12/08/24 Time Urinary Catheter Discontinued: 06:40 Data 12/10/24 02:34 12/10/24 02:34 A&P Assessment and plan (1) Smoker: (2) Generalized weakness: (3) Sleep apnea: (4) COPD (chronic obstructive pulmonary disease): Qualifiers: COPD type: unspecified COPD Qualified Code(s): J44.9 - Chronic obstructive pulmonary disease, unspecified (5) Hip fracture: (6) Postoperative anemia: Plan Ground-level fall Right hip fracture N.p.o. Takes aspirin History of seizure Start IV fluids Clinical looks dehydrated Sarcopenia with dental caries Continue antiepileptics Dr. Chauhan consulted DVT prophylaxis SCDs Full code Nicotine patch 12/08/2024 hemoglobin 8.5 today, baseline probably 11. will continue to monitor transfuse for hb < 7 vitals stable echo - no good windows - pt feels better today continue PT/OT will need rehab at [place] 12/09/2024 Hemoglobin 8.5 this morning. Did drop to 8.0. Transfuse for hemoglobin less than 7. Patient complaining of hip spasm. Will order home baclofen at this time. He required maximum assistance for pivoting bed transfer, stand to sit and sit to stand. He was unable to ambulate and therefore he did stand with four-wheel walker. He will need rehab going forward. Patient is unsafe to go home alone with home health. He will need rehab at discharge. 12/10/2024 Hemoglobin 7.2 this morning. 1 unit packed RBC ordered. Check CBC 2 hours posttransfusion Continue home baclofen. Spasms are better however he complains of pain in his hip. I will add hydrocodone 5 every 6 hours as needed. Will use IV morphine intermittently for breakthrough pain. Patient will need to remain in hospital for stabilization of hemoglobin prior to be safe for discharge to rehab. Medically not cleared for discharge today. PDMP PDMP Reviewed: Not Reviewed Attestations 2 Medical Necessity Statement*: Course continued hospitalization for postop anemia. He will need 1 unit packed RBC today. Diagnoses Smoker F17.200 Generalized weakness R53.1 Sleep apnea G47.30 Chronic obstructive pulmonary disease, unspecified COPD type J44.9 COPD type: unspecified COPD Hip fracture S72.009A Postoperative anemia D64.9
[2024-12-10 14:54] LABS: Basophils # 0.1 10^3/uL (0.0-0.1); Basophils % 0.5 %; Eosinophils # 0.2 10^3/uL (0.0-0.8); Eosinophils % 1.5 %; Hematocrit 26.8 % (37-53); Lymphocytes % 19.7 %; Mean Corpuscular HGB Conc 33.2 g/dL (30-55); Mean Corpuscular Hemoglobin 31.4 pg (27-33); Mean Corpuscular Volume 94.7 fl (82-101); Mean Platelet Volume 8.5 fL (7.4-10.4); Monocytes # 1.3 10^3/uL (0.2-0.9); Monocytes % 12.4 %; Neutrophils # 6.63 10^3/uL (1.8-7.7); Neutrophils % 65.5 %; Nucleated Red Blood Cells % 0 %; Platelet Count 242 10^3/cmm (157-399); Red Blood Count 2.83 10^6/uL (3.85-5.65); Red Cell Distribution Width 14.6 % (12.1-15.1); White Blood Count 10.11 10^3/uL (3.29-11.43)
[2024-12-11] VITALS (11 sets, daily range): BP systolic 106–148; BP diastolic 63–83; PULSE 64–81; RESP 16–19; TEMP 36.5–37.4; O2SAT 90–97; BMI 19.2
[2024-12-11 05:19] LABS: Basophils % 0.4 %; Eosinophils # 0.4 10^3/uL (0.0-0.8); Eosinophils % 3.4 %; Hematocrit 24.1 % (37-53); Lymphocytes # 2.5 10^3/uL (0.8-4.8); Lymphocytes % 21.9 %; Mean Corpuscular HGB Conc 33.6 g/dL (30-55); Mean Corpuscular Hemoglobin 31.4 pg (27-33); Mean Corpuscular Volume 93.4 fl (82-101); Mean Platelet Volume 8.6 fL (7.4-10.4); Monocytes # 1.5 10^3/uL (0.2-0.9); Monocytes % 12.9 %; Neutrophils # 6.94 10^3/uL (1.8-7.7); Nucleated Red Blood Cells % 0 %; Platelet Count 249 10^3/cmm (157-399); Red Blood Count 2.58 10^6/uL (3.85-5.65); Red Cell Distribution Width 14.6 % (12.1-15.1); White Blood Count 11.34 10^3/uL (3.29-11.43)
[2024-12-11] MEDS: oxyCODONE 5 mg IR Tab/Cap 15 MG PO ×3 (05:20→17:33)
[2024-12-11 05:38] LABS: Anion Gap 10.8 (5-19); Blood Urea Nitrogen 16 mg/dL (8-23); Calcium 8.4 mg/dL (8.5-10.5); Carbon Dioxide 25 mmol/L (22-29); Chloride 106 mmol/L (98-107); Glomerular Filtration Rate 112.5 mL/min (90-130); Glucose 105 mg/dL (65-115); Magnesium 1.9 mg/dL (1.7-2.3); Osmolality Calculated 288 mOsm/kg (285-295); Potassium 3.8 mmol/L (3.5-5.1); Sodium 138 mmol/L (136-145)
[2024-12-11] MEDS: BuSPIRONE 10 mg Tablet PO ×3 (07:58→20:01)
[2024-12-11] MEDS: calcium carb-vit d 600mg/400unit 1 Tablet 1 EACH PO ×2 (07:58→17:33)
[2024-12-11] MEDS: sennosides-docusate Tablet 1 TAB PO (07:58)
[2024-12-11] MEDS: iron polysaccharide complex 150 mg Capsule PO ×2 (07:58→17:33)
[2024-12-11] MEDS: pantoprazole DR 40 mg Tablet PO (07:58)
[2024-12-11] MEDS: baclofen 10 mg Tablet 20 MG PO ×2 (07:58→17:33)
[2024-12-11] MEDS: multivitamin therapeutic Tablet 1 TAB PO (07:58)
[2024-12-11] MEDS: enoxaparin 30 mg/0.3 mL Syringe SUBCUT (07:58)
[2024-12-11] MEDS: chlorhexidine gluconate 0.12% Btl 473 mL 30 ML MUCOUS MEM ×4 (07:59→20:00)
[2024-12-11] MEDS: mupirocin oint 22 gm 1 APPLIC NASAL ×2 (07:59→17:34)
--- NOTE | 2024-12-11 12:06 | PC.SOCIAL ---
IMM Updated Updated pt on IMM. No questions voiced. Provided pt a copy. Initialed, dated, & timed copy in chart.
[2024-12-11 15:48] LABS: Hematocrit 24.8 % (37-53)
--- NOTE | 2024-12-11 16:56 | P.PN_ITS ---
Subjective 2 Subjective: No new complaints today. States pain is overall better controlled. Hemoglobin at 8.2 today. Medications: Reviewed: Yes Vitals/I&O/Wt Last Vital Signs Temp 98.0 F 12/11/24 15:21 Pulse 73 12/11/24 15:21 Resp 18 12/11/24 15:21 BP 124/67 12/11/24 15:21 Pulse Ox 93 12/11/24 15:21 O2 Del Method Room Air 12/11/24 15:21 O2 Flow Rate 4 12/07/24 19:25 12/11/24 12/11/24 12/11/24 06:59 14:59 22:59 Intake Total 720 / 720 Output Total 315 / 1365 350 / 350 Balance -315 / -175 370 / 370 Weight last 48 hrs Weight 68.039 kg Weight 66.497 kg Physical Exam 2 Narrative: General: No acute distress, AO x3 HEENT: PERRLA, pupils bilaterally equal and reactive, pallors not present Chest: Normal vesicular breath sounds, no added sounds, equal good air entry bilaterally CVS: S1-S2 regular, no murmurs, no tachycardia, no gallops, no rubs Abdomen: Soft, nontender, no organomegaly, bowel sounds present Neuro: No focal deficits, no facial deformity, AO x3, power 5/5 in all limbs Urinary Catheter Management: Ball Latex: Cath Placed During This Visit: yes, but has since been removed by the nurse Reason for Continuing Indwelling Catheter: Decision to DC Catheter Urinary Catheter Date of Insertion: 12/07/24 Urinary Catheter Time of Insertion: 07:19 Date Urinary Catheter Removed: 12/08/24 Time Urinary Catheter Discontinued: 06:40 Data 12/11/24 15:20 12/11/24 04:22 A&P Assessment and plan (1) Smoker: (2) Generalized weakness: (3) Sleep apnea: (4) COPD (chronic obstructive pulmonary disease): Qualifiers: COPD type: unspecified COPD Qualified Code(s): J44.9 - Chronic obstructive pulmonary disease, unspecified (5) Hip fracture: (6) Postoperative anemia: Plan Ground-level fall Right hip fracture N.p.o. Takes aspirin History of seizure Start IV fluids Clinical looks dehydrated Sarcopenia with dental caries Continue antiepileptics Dr. Chauhan consulted DVT prophylaxis SCDs Full code Nicotine patch 12/08/2024 hemoglobin 8.5 today, baseline probably 11. will continue to monitor transfuse for hb < 7 vitals stable echo - no good windows - pt feels better today continue PT/OT will need rehab at [place] 12/09/2024 Hemoglobin 8.5 this morning. Did drop to 8.0. Transfuse for hemoglobin less than 7. Patient complaining of hip spasm. Will order home baclofen at this time. He required maximum assistance for pivoting bed transfer, stand to sit and sit to stand. He was unable to ambulate and therefore he did stand with four-wheel walker. He will need rehab going forward. Patient is unsafe to go home alone with home health. He will need rehab at discharge. 12/10/2024 Hemoglobin 7.2 this morning. 1 unit packed RBC ordered. Check CBC 2 hours posttransfusion Continue home baclofen. Spasms are better however he complains of pain in his hip. I will add hydrocodone 5 every 6 hours as needed. Will use IV morphine intermittently for breakthrough pain. Patient will need to remain in hospital for stabilization of hemoglobin prior to be safe for discharge to rehab. Medically not cleared for discharge today. December 11, 2024 Hemoglobin at 8.1. Will recheck this afternoon. Status post 1 packed red blood cell transfusion yesterday. No new overt source of bleeding. Likely postop anemia. Start iron and multivitamin supplementation. Will check iron panel B12 and folate. Patient reports he has a history of anorexia nervosa and nutritional deficiencies. Has not had much of an appetite. Awaiting appropriate disposition planning, acceptance from SNF. If hemoglobin remains stable, would be able to discharge in the upcoming 24 hours.Hold Lovenox. PDMP PDMP Reviewed: Not Reviewed Attestations 2 Medical Necessity Statement*: Ongoing appropriate disposition planning. Coding Level of Care Code Acute Code for Chg Fwd Diagnoses Smoker F17.200 Generalized weakness R53.1 Sleep apnea G47.30 Chronic obstructive pulmonary disease, unspecified COPD type J44.9 COPD type: unspecified COPD Hip fracture S72.009A Postoperative anemia D64.9
--- NOTE | 2024-12-11 17:49 | PC.NURSE ---
Upon passing 1800 meds, pt stated his back was itching. This nurse did a skin assessment on patients back at this time. Pt has developed a rash. States it itches, but is not painful. Picture obtained and sent to Dr. Tam via Vo[employer] at 1736.
[2024-12-11] MEDS: diphenhydrAMINE 25 mg Capsule PO (22:23)
[2024-12-12 01:51] VITALS: RESP 18
[2024-12-12] MEDS: oxyCODONE 5 mg IR Tab/Cap 15 MG PO ×3 (01:51→12:07)
[2024-12-12 03:57] VITALS: BP 134/77; PULSE 73; RESP 18; TEMP 36.8; O2SAT 90
[2024-12-12 06:22] VITALS: RESP 16
[2024-12-12 06:27] LABS: Basophils # 0.1 10^3/uL (0.0-0.1); Basophils % 0.9 %; Eosinophils # 0.5 10^3/uL (0.0-0.8); Eosinophils % 5.7 %; Hematocrit 24.8 % (37-53); Lymphocytes % 32.2 %; Mean Corpuscular HGB Conc 32.7 g/dL (30-55); Mean Corpuscular Hemoglobin 31.9 pg (27-33); Mean Corpuscular Volume 97.6 fl (82-101); Mean Platelet Volume 8.7 fL (7.4-10.4); Monocytes # 1.3 10^3/uL (0.2-0.9); Monocytes % 13.9 %; Neutrophils # 4.38 10^3/uL (1.8-7.7); Neutrophils % 46.9 %; Nucleated Red Blood Cells % 0 %; Platelet Count 276 10^3/cmm (157-399); Red Blood Count 2.54 10^6/uL (3.85-5.65); Red Cell Distribution Width 14.7 % (12.1-15.1); White Blood Count 9.34 10^3/uL (3.29-11.43)
[2024-12-12 06:51] LABS: Alanine Aminotransferase 16 U/L (0-41); Albumin Level 2.8 g/dL (3.5-5.2); Alkaline Phosphatase 50 U/L (40-130); Anion Gap 11.8 (5-19); Aspartate Amino Transferase 43 U/L (0-40); Blood Urea Nitrogen 17 mg/dL (8-23); Carbon Dioxide 23 mmol/L (22-29); Chloride 106 mmol/L (98-107); Globulin 2.2 g/dL (1.3-4.6); Glomerular Filtration Rate 112.5 mL/min (90-130); Glucose 90 mg/dL (65-115); Osmolality Calculated 285 mOsm/kg (285-295); Potassium 3.8 mmol/L (3.5-5.1); Sodium 137 mmol/L (136-145); Total Bilirubin 0.7 mg/dL (0.15-1.2)
[2024-12-12 06:52] LABS: Ferritin 111 ng/mL (30-400); Iron 40 ug/dL (59-158)
[2024-12-12 07:05] LABS: Folate Level 7.5 ng/mL (4.5-32.2)
[2024-12-12 07:06] LABS: Vitamin B12 204 pg/mL (232-1245)
[2024-12-12 07:58] VITALS: BP 130/76; PULSE 76; RESP 17; TEMP 36.8; O2SAT 92
[2024-12-12] MEDS: calcium carb-vit d 600mg/400unit 1 Tablet 1 EACH PO (08:06)
[2024-12-12] MEDS: mupirocin oint 22 gm 1 APPLIC NASAL (08:07)
[2024-12-12] MEDS: pantoprazole DR 40 mg Tablet PO (08:07)
[2024-12-12] MEDS: multivitamin therapeutic Tablet 1 TAB PO (08:07)
[2024-12-12] MEDS: baclofen 10 mg Tablet 20 MG PO (08:07)
[2024-12-12] MEDS: BuSPIRONE 10 mg Tablet PO (08:07)
[2024-12-12] MEDS: iron polysaccharide complex 150 mg Capsule PO (08:07)
[2024-12-12] MEDS: chlorhexidine gluconate 0.12% Btl 473 mL 30 ML MUCOUS MEM (08:07)
[2024-12-12] MEDS: sennosides-docusate Tablet 1 TAB PO (08:07)
[2024-12-12] MEDS: diphenhydrAMINE 25 mg Capsule PO (08:07)
[2024-12-12 11:27] VITALS: BP 114/72; PULSE 99; RESP 16; TEMP 36.8; O2SAT 96
[2024-12-12 12:07] VITALS: RESP 18; O2SAT 99
--- NOTE | 2024-12-12 12:42 | PC.NURSE ---
This nurse called report to Mechelle at [facility] at 1227. Their facilities transport should be here around 1300 to get pt.
--- NOTE | 2024-12-12 16:58 | P.DS_ITS ---
Discharge Providers Date of Admission: 12/07/24 04:22 Date of Discharge: December 12, 2024 Attending Provider at Admission: Sarah Salgado MD Attending Provider at Discharge: Mayte Tam MD Primary Care Provider: MIGUEL ANGEL Connor Diagnoses at Discharge Discharge Diagnosis (1) Smoker: Status: Acute (2) Generalized weakness: Status: Acute (3) Sleep apnea: Status: Acute (4) COPD (chronic obstructive pulmonary disease): Status: Chronic Qualifiers: COPD type: unspecified COPD Qualified Code(s): J44.9 - Chronic obstructive pulmonary disease, unspecified (5) Hip fracture: Status: Acute (6) Postoperative anemia: Status: Acute Reason for Visit Reason for Visit: fall Hospital Course Hospital Course Baldev Rossi is a 69 year old male who presented to the hospital after sustaining a fall. around 3 AM he went outside to smoke and fell after losing balance and fell on the concrete. Patient found to have right intertrochanteric femur fracture , he underwent right hip trochanteric femur nail on 12/07/24. He tolerated the procedure well. Hospital course was notable for postop anemia. He has been started on iron supplementation at the time of discharge. DVT prophylaxis provided with Lovenox 30 mg subcutaneously daily. On December 11, 2024 he was noted to have maculopapular rash involving his entire back and neck for posteriorly. No rash was encountered anywhere else on the body. Clinically this may be a drug-induced rash, perhaps precipitated by perioperative antibiotics cefazolin. He does not have any known history of penicillin or cephalosporin allergy. No other new medications other than iron supplementation were provided on this current admission. Topical hydrocortisone ointment and short course of oral prednisone 20 mg daily has been ordered for the next 3 days. Patient did receive opiates for pain management during course of admission, however review of chart shows he is chronically on oxycodone therefore less likely the rash is opiate induced. Patient states he has had several surgeries in the past and received Lovenox for DVT prophylaxis therefore thought to be less likely to be the cause of his current rash. No other new medications overtly noted during this admission. Should the rash fail to improve, consider follow-up with dermatology as an outpatient. No antibiotics indicated at the time of discharge. Physical Exam Narrative: General: No acute distress, AO x3 HEENT: PERRLA, pupils bilaterally equal and reactive, pallors not present Chest: Normal vesicular breath sounds, no added sounds, equal good air entry bilaterally CVS: S1-S2 regular, no murmurs, no tachycardia, no gallops, no rubs Abdomen: Soft, nontender, no organomegaly, bowel sounds present Neuro: No focal deficits, no facial deformity, AO x3, power 5/5 in all limbs Extremities: Maculopapular rash involving the entire back and posterior neck fold. Suspect this to be a drug eruption. Urinary Catheter Management: Ball Latex: Cath Placed During This Visit: yes, but has since been removed by the nurse Reason for Continuing Indwelling Catheter: Decision to DC Catheter Urinary Catheter Date of Insertion: 12/07/24 Urinary Catheter Time of Insertion: 07:19 Date Urinary Catheter Removed: 12/08/24 Time Urinary Catheter Discontinued: 06:40 Discharge Data Studies Completed and Pending Completed Studies During Hospitalization Category Date Time Status CT hip RT wo con* [id number] Stat Cat Scan 12/07/24 04:32 Completed XR chest 1V portable [id number] Stat Exams 12/07/24 04:14 Completed XR femur RT min 2V* [id number] Routine Exams 12/07/24 09:07 Completed XR hip RT 2-3V wo/w pel* [id number] Routine Exams 12/07/24 19:02 Completed XR hip RT 2-3V wo/w pel* [id number] Stat Exams 12/07/24 03:27 Completed CV. echo complete* [id number] Routine Ultrasound 12/07/24 05:35 Completed Pending at discharge Category Date Time Status Leukocyte Reduced RBC Stat Lab 12/10/24 05:09 Results Type and Screen Stat Lab 12/10/24 05:09 Results Radiology Impressions Chest X-Ray 12/07/24 04:14 IMPRESSION: 1. New faint rounded opacity projecting over the right inferomedial thorax. Though nonspecific, this may represent a hiatal hernia. Further evaluation could be performed with CT abdomen. 2. No acute cardiopulmonary process. Hip CT 12/07/24 04:32 IMPRESSION: 1. Acute mildly comminuted intertrochanteric fracture with coxa vera angulation. 2. Marked osseous demineralization. Femur X-Ray 12/07/24 09:07 Impression: Intertrochanteric right hip fracture. Hip/Pelvis X-Ray 12/07/24 19:02 IMPRESSION: Recently placed right hip trochanteric nail in expected alignment. Laboratory Results WBC 9.34 10^3/uL (3.29-11.43) 12/12/24 05:46 RBC 2.54 10^6/uL (3.85-5.65) L 12/12/24 05:46 Hgb 8.10 g/dL (11.27-16.99) L 12/12/24 05:46 Hct 24.8 % (37-53) L 12/12/24 05:46 MCV 97.6 fl (82-101) 12/12/24 05:46 MCH 31.9 pg (27-33) 12/12/24 05:46 MCHC 32.7 g/dL (30-55) 12/12/24 05:46 RDW 14.7 % (12.1-15.1) 12/12/24 05:46 Plt Count 276 10^3/cmm (157-399) 12/12/24 05:46 MPV 8.7 fL (7.4-10.4) 12/12/24 05:46 Neut % (Auto) 46.9 % 12/12/24 05:46 Lymph % (Auto) 32.2 % 12/12/24 05:46 [place] % (Auto) 13.9 % 12/12/24 05:46 Eos % (Auto) 5.7 % 12/12/24 05:46 Baso % (Auto) 0.9 % 12/12/24 05:46 Neut # (Auto) 4.38 10^3/uL (1.8-7.7) 12/12/24 05:46 Lymph # (Auto) 3.0 10^3/uL (0.8-4.8) 12/12/24 05:46 [place] # (Auto) 1.3 10^3/uL (0.2-0.9) H 12/12/24 05:46 Eos # (Auto) 0.5 10^3/uL (0.0-0.8) 12/12/24 05:46 Baso # (Auto) 0.1 10^3/uL (0.0-0.1) 12/12/24 05:46 Nucleated RBC % (auto) 0 % 12/12/24 05:46 Nucleated RBCs # 0.0 /100WBC 12/12/24 05:46 PT 13.20 SECONDS (12.1-14.9) 12/07/24 03:30 INR 0.93 (0.8-1.2) 12/07/24 03:30 APTT 25.6 SECONDS (23.9-36.7) 12/07/24 03:30 Sodium 137 mmol/L (136-145) 12/12/24 05:46 Potassium 3.8 mmol/L (3.5-5.1) 12/12/24 05:46 Chloride 106 mmol/L (98-107) 12/12/24 05:46 Carbon Dioxide 23 mmol/L (22-29) 12/12/24 05:46 Anion Gap 11.8 (5-19) 12/12/24 05:46 BUN 17 mg/dL (8-23) 12/12/24 05:46 Creatinine 0.7 mg/dL (0.7-1.2) 12/12/24 05:46 GFR Calculation 112.5 mL/min (90-130) 12/12/24 05:46 Glucose 90 mg/dL (65-115) 12/12/24 05:46 POC Glucose 130 mg/dL (70-110) H 12/07/24 17:48 Estimat Average Glucose 114 12/07/24 03:30 Hemoglobin A1c 5.6 % (4.0-6.0) 12/07/24 03:30 Calculated Osmolality 285 mOsm/kg (285-295) 12/12/24 05:46 Calcium 8.0 mg/dL (8.5-10.5) L 12/12/24 05:46 Magnesium 1.9 mg/dL (1.7-2.3) 12/11/24 04:22 Iron 40 ug/dL (59-158) L 12/12/24 05:46 Ferritin 111 ng/mL (30-400) 12/12/24 05:46 Total Bilirubin 0.7 mg/dL (0.15-1.2) 12/12/24 05:46 AST 43 U/L (0-40) H 12/12/24 05:46 ALT 16 U/L (0-41) 12/12/24 05:46 Alkaline Phosphatase 50 U/L (40-130) 12/12/24 05:46 Total Protein 5.0 g/dL (6.6-8.7) L 12/12/24 05:46 Albumin 2.8 g/dL (3.5-5.2) L 12/12/24 05:46 Globulin 2.2 g/dL (1.3-4.6) 12/12/24 05:46 Vitamin B12 204 pg/mL (232-1245) L 12/12/24 05:46 Folate 7.5 ng/mL (4.5-32.2) 12/12/24 05:46 Urine Color Yellow (Yellow) 12/07/24 07:17 Urine Appearance Clear (CLEAR) 12/07/24 07:17 Urine pH 5.5 (5-7) 12/07/24 07:17 Ur Specific [place] 1.024 (1.005-1.030) 12/07/24 07:17 Urine Protein Trace (Negative) A 12/07/24 07:17 Urine Glucose (UA) Negative (Normal) 12/07/24 07:17 Urine Ketones Trace (Negative) 12/07/24 07:17 Urine Blood Negative (Negative) 12/07/24 07:17 Urine Nitrate Negative (Negative) 12/07/24 07:17 Urine Bilirubin Negative (Negative) 12/07/24 07:17 Urine Urobilinogen 1.0 mg/dL (Negative) 12/07/24 07:17 Ur Leukocyte Esterase Negative (Negative) 12/07/24 07:17 Urine RBC Rare /hpf (0-2) 12/07/24 07:17 Urine WBC 0-4 /hpf (0-5) H 12/07/24 07:17 Ur Squamous Epith Cells 0-4 /hpf (0-5) H 12/07/24 07:17 Amorphous Sediment Not Reportable 12/07/24 07:17 Urine Bacteria Trace /hpf (NONE) 12/07/24 07:17 Hyaline Casts 10-15 /lpf H 12/07/24 07:17 Urine Mucus 2+ /hpf 12/07/24 07:17 Blood Type O Positive 12/10/24 05:09 Rho(D) Type Rh positive 12/10/24 05:09 Antibody Screen Negative 12/10/24 05:09 Crossmatch See Detail 12/10/24 05:09 Vitals Last Vital Signs Temp 98.3 F 12/12/24 11:27 Pulse 99 12/12/24 11:27 Resp 18 12/12/24 12:07 BP 114/72 12/12/24 11:27 Pulse Ox 99 12/12/24 12:07 O2 Del Method Room Air 12/12/24 11:27 O2 Flow Rate 4 12/07/24 19:25 Discharge Plan Discharge Patient Disposition: Xfer SNF Condition: Stable Prescriptions: New enoxaparin [Lovenox] 30 mg/0.3 mL syringe 30 mg SUBCUT DAILY 35 Days Qty: 10.5 0RF polysaccharide iron complex [Ferrex 150] 150 mg iron Capsule 150 mg PO BIDWM 30 Days Qty: 60 0RF calcium carbonate-vitamin D3 600 mg-10 mcg (400 unit) Tablet 1 tab PO BID 30 Days Qty: 60 0RF hydrocortisone 1 % ointment 1 applic topical DAILY Qty: 28.35 0RF prednisone 20 mg tablet 20 mg PO DAILY 5 Days Qty: 5 0RF Continued magnesium oxide 400 mg (241.3 mg magnesium) tablet See Rx Instructions .ROUTE .COMPLEX Qty: 180 1RF Dose Instruction: TAKE ONE TABLET BY MOUTH TWICE DAILY Rx Instructions: TAKE ONE TABLET BY MOUTH TWICE DAILY nitroglycerin 0.4 mg tablet, sublingual See Rx Instructions .ROUTE .COMPLEX Qty: 25 1RF Dose Instruction: DISSOLVE 1 TABLET UNDER THE TONGUE EVERY 5 MINUTES NEEDED FOR CHEST PAIN. DO NOT EXCEED A TOTAL OF 3 DOSES IN 15 MINUTES. Rx Instructions: DISSOLVE 1 TABLET UNDER THE TONGUE EVERY 5 MINUTES NEEDED FOR CHEST PAIN. DO NOT EXCEED A TOTAL OF 3 DOSES IN 15 MINUTES. ondansetron HCl 8 mg tablet See Rx Instructions .ROUTE .COMPLEX Qty: 30 0RF Dose Instruction: TAKE ONE TABLET BY MOUTH EVERY 8 HOURS NEEDED FOR NAUSEA AND FOR VOMITING Rx Instructions: TAKE ONE TABLET BY MOUTH EVERY 8 HOURS NEEDED FOR NAUSEA AND FOR VOMITING aspirin 81 mg tablet,delayed release (DR/EC) See Rx Instructions .ROUTE .COMPLEX Qty: 90 1RF Dose Instruction: TAKE ONE TABLET BY MOUTH DAILY. Rx Instructions: TAKE ONE TABLET BY MOUTH DAILY. albuterol sulfate [Ventolin HFA] 90 mcg/actuation HFA aerosol inhaler See Rx Instructions .ROUTE .COMPLEX Qty: 18 2RF Dose Instruction: INHALE TWO PUFFS BY MOUTH EVERY 6 HOURS NEEDED FOR SHORTNESS OF BREATH OR FOR WHEEZING Rx Instructions: INHALE TWO PUFFS BY MOUTH EVERY 6 HOURS NEEDED FOR SHORTNESS OF BREATH OR FOR WHEEZING cetirizine 10 mg tablet See Rx Instructions .ROUTE .COMPLEX Qty: 90 1RF Dose Instruction: TAKE ONE TABLET BY MOUTH EVERY DAY. Rx Instructions: TAKE ONE TABLET BY MOUTH EVERY DAY. buspirone 10 mg tablet See Rx Instructions .ROUTE .COMPLEX Qty: 270 1RF Dose Instruction: TAKE ONE TABLET BY MOUTH THREE TIMES DAILY Rx Instructions: TAKE ONE TABLET BY MOUTH THREE TIMES DAILY omeprazole 20 mg capsule,delayed release(DR/EC) 20 mg PO BID Qty: 180 1RF baclofen 20 mg tablet See Rx Instructions .ROUTE .COMPLEX Qty: 180 1RF Dose Instruction: TAKE ONE TABLET BY MOUTH TWICE DAILY Rx Instructions: TAKE ONE TABLET BY MOUTH TWICE DAILY potassium chloride 10 mEq capsule, extended release See Rx Instructions .ROUTE .COMPLEX Qty: 90 1RF Dose Instruction: TAKE ONE CAPSULE BY MOUTH EVERY DAY Rx Instructions: TAKE ONE CAPSULE BY MOUTH EVERY DAY levetiracetam 750 mg tablet extended release 24 hr See Rx Instructions .ROUTE .COMPLEX Qty: 180 1RF Dose Instruction: TAKE ONE TABLET BY MOUTH EVERY TWELVE HOURS Rx Instructions: TAKE ONE TABLET BY MOUTH EVERY TWELVE HOURS lovastatin 40 mg tablet See Rx Instructions .ROUTE .COMPLEX Qty: 90 1RF Dose Instruction: TAKE ONE TABLET BY MOUTH EVERY DAY Rx Instructions: TAKE ONE TABLET BY MOUTH EVERY DAY paroxetine HCl 40 mg tablet See Rx Instructions .ROUTE .COMPLEX Qty: 90 1RF Dose Instruction: TAKE ONE TABLET BY MOUTH EVERY DAY Rx Instructions: TAKE ONE TABLET BY MOUTH EVERY DAY losartan 50 mg tablet See Rx Instructions .ROUTE .COMPLEX Qty: 90 1RF Dose Instruction: TAKE ONE TABLET BY MOUTH EVERY DAY Rx Instructions: TAKE ONE TABLET BY MOUTH EVERY DAY furosemide 20 mg tablet See Rx Instructions .ROUTE .COMPLEX Qty: 90 1RF Dose Instruction: TAKE ONE TABLET BY MOUTH EVERY MORNING Rx Instructions: TAKE ONE TABLET BY MOUTH EVERY MORNING diphenhydramine HCl [Banophen] 25 mg capsule See Rx Instructions .ROUTE .COMPLEX Qty: 60 0RF Dose Instruction: TAKE ONE CAPSULE BY MOUTH EVERY 6 HOURS NEEDED FOR ALLERGY SYMPTOMS Rx Instructions: TAKE ONE CAPSULE BY MOUTH EVERY 6 HOURS NEEDED FOR ALLERGY SYMPTOMS ergocalciferol (vitamin D2) 1,250 mcg (50,000 unit) capsule See Rx Instructions .ROUTE .COMPLEX Qty: 2 0RF Dose Instruction: TAKE ONE CAPSULE BY MOUTH WEEKLY Rx Instructions: TAKE ONE CAPSULE BY MOUTH WEEKLY oxycodone 15 mg tablet 15 mg PO Q4H PRN (Reason: Pain) 7 Days Qty: 42 0RF Discharge Orders: Discharge Order (Routine); Ordered 12/12/24 Ordered By: Mayte Tam Referrals: [facility] [Outside] Fay Hernandez FNP [Primary Care Provider] - 12/20/24 12:00 pm Juan Chauhan DO [Physician] - 12/26/24 10:45 am Cristina Diane DO [Physician] - 2 weeks Discharge Diet: Advance as tolerated Discharge Activity: Limit activity as instructed Patient Instructions: Enoxaparin (By injection), Acute Wound Care (DC), Post Anesthesia Care Activity Restrictions/Additional Instructions: Orthopedic discharge instructions: Weightbearing as tolerated to the operative extremity Ice as needed for pain and swelling Encourage knee and hip range of motion as tolerated PT/OT Take pain medication as prescribed Take antinausea medication as needed Supplement with Citracal vitamin D for bone health and healing Take Lovenox (blood thinner) as prescribed for blood clot prevention Take Colace as needed for constipation Leave Silverlon dressings on and in place for 7 days. After this they may be removed you may shower/rinse incisions with warm soapy water, pat dry redress with a dry dressing. Okay to sponge bath/shower with Silverlon dressings as they should be waterproof however if they do get saturated or wet please take these off dry the incision and redressed with a new dry sterile bandage. Follow-up in the orthopedic office with Dr. Chauhan in 2 weeks for repeat x-rays and incision check/staple removal Contact the office for any questions or concerns (i.e. increasing redness and drainage around the incision, fevers, or chills, or severe worsening in pain/ change in symptoms) Discharge Attestations Time Spent in Discharge Care*: greater than 30 min Quality Metrics Clinical Quality Measures [ No reported AMI, CVA or VTE this stay] Coding Level of Care Code Acute Code for Chg Fwd Diagnoses Smoker F17.200 Generalized weakness R53.1 Sleep apnea G47.30 Chronic obstructive pulmonary disease, unspecified COPD type J44.9 COPD type: unspecified COPD Hip fracture S72.009A Postoperative anemia D64.9
== END 2024-12-12 13:10 | disposition skilled nursing facility (03) | DRG 481 ==
LOC: ER 05:45 → ER IP 06:24 → MEDSURG 12:18
PROVIDERS: Internal Medicine; Student in an Organized Health Care Education/Training Program; Admitting Provider Internal Medicine; Emergency Provider Emergency Medicine; PCP Nurse Practitioner Family; Visit Provider Student in an Organized Health Care Education/Training Program
PROC: 0QS606Z Reposition Right Upper Femur with Intramedullary Internal Fixation Device, Open Approach (ICD-10-PCS; CPT 27245; principal; 2024-12-07 18:05)
DX: S72.141A Displaced intertrochanteric fracture of right femur, initial encounter for closed fracture (principal); D62 Acute posthemorrhagic anemia; E46 Unspecified protein-calorie malnutrition; Z68.1 Body mass index [BMI] 19.9 or less, adult; J44.9 Chronic obstructive pulmonary disease, unspecified; I10 Essential (primary) hypertension; K21.9 Gastro-esophageal reflux disease without esophagitis; K02.9 Dental caries, unspecified; M19.90 Unspecified osteoarthritis, unspecified site; F17.210 Nicotine dependence, cigarettes, uncomplicated; W01.0XXA Fall on same level from slipping, tripping and stumbling without subsequent striking against object, initial encounter; G47.30 Sleep apnea, unspecified; F41.9 Anxiety disorder, unspecified; F32.A Depression, unspecified; E86.0 Dehydration; M62.84 Sarcopenia; L27.1 Localized skin eruption due to drugs and medicaments taken internally; T50.905A Adverse effect of unspecified drugs, medicaments and biological substances, initial encounter; M62.838 Other muscle spasm; Z79.899 Other long term (current) drug therapy; Z79.82 Long term (current) use of aspirin; Z88.8 Allergy status to other drugs, medicaments and biological substances; Z88.5 Allergy status to narcotic agent; Z79.891 Long term (current) use of opiate analgesic
CPT/HCPCS: 36415; 36416; 36430; 51702; 71045; 73502; 73552; 73700; 76000; 80048; 80053; 81001; 82607; 82728; 82746; 82962; 83036; 83540; 83735; 85014; 85018; 85025; 85610; 85730; 86850; 86900; 86920; 93005; 93306; 96372; 96374; 96375; 97110; 97116; 97162; 97165; 97530; 97535; 99285; C1713; C1776; J0131; J0690; J1100; J1171; J1200; J1650; J1885; J2270; J2405; J2704; J3010; J7042; J9999; P9016

== ENCOUNTER 2024-12-13 17:45 | Emergency (ER) | payer MEDICARE, MEDICAID, SELFPAY ==
[2024-12-13] VITALS (8 sets, daily range): BP systolic 111–140; BP diastolic 63–75; PULSE 55–92; RESP 16; TEMP 36.6; O2SAT 93–98; BMI 21.4
--- NOTE | 2024-12-13 17:57 | XRR_ITS ---
PROCEDURE INFORMATION: Exam: XR Right Hip Exam date and time: 12/13/2024 6:16 PM Age: 69 years old Clinical indication: Injury or trauma; Fall; Blunt trauma (contusions or hematomas); Right; Prior surgery; Surgery date: 3-7 days post-operative; Surgery type: RT hip; Additional info: Fall pain recent hip FX surgery TECHNIQUE: Imaging protocol: Radiologic exam of the right hip. Views: 1 view hip with pelvis when performed. COMPARISON: CR (PELVIS, ) 12/07/2024 7:10 PM FINDINGS: Bones/joints: Status post ORIF with an intramedullary sol with 2 interlocking screws in the proximal right femur. Soft tissues: Unremarkable. XR/XR hip RT 2-3V wo/w pel* [id number] IMPRESSION: Status post ORIF with an intramedullary sol with 2 interlocking screws in the proximal right femur.
--- NOTE | 2024-12-13 18:20 | ED_ITS ---
HPI - Extremity Problem General: Chief complaint: Extremity Injury, Lower Stated complaint: post op rt hip - fall Time Seen by Provider: 12/13/24 17:51 History of Present Illness: Patient presents to the ER via EMS from [facility] due to a fall with right hip pain. Patient had recent right hip surgery due to a fracture on 227. Patient was found on the floor by staff at 7 AM this morning. He had an unwitnessed fall. Patient noted his right hip pain progressed throughout the day. EMS administered 100 mcg of fentanyl on route patient is relatively pain-free and mildly sedated at this time. Related Data Previous Rx's ?Medication ?Instructions ?Recorded nitroglycerin 0.4 mg sublingual See Rx Instructions .R oute 07/20/22 tablet .COMPLEX #25 tabs magnesium oxide 400 mg (241.3 mg See Rx Instructions . Route 01/11/23 magnesium) tablet .COMPLEX #180 tabs ondansetron HCl 8 mg tablet See Rx Instructions .Route 11/21/23 .COMPLEX #30 tabs aspirin 81 mg tablet,delayed See Rx Instructions .Rout e 01/27/24 release .COMPLEX #90 tabs albuterol sulfate 90 mcg/actuation See Rx Instructions .Route 04/10/24 aerosol inhaler (Ventolin HFA) .COMPLEX #18 grams cetirizine 10 mg tablet See Rx Instructions .Route 1 10/14/23 .COMPLEX #90 tabs baclofen 20 mg tablet See Rx Instructions .Route 1 10/30/23 .COMPLEX #180 tabs buspirone 10 mg tablet See Rx Instructions .Route 1 10/30/23 .COMPLEX #270 tabs furosemide 20 mg tablet See Rx Instructions .Route 1 10/30/23 .COMPLEX #90 tabs levetiracetam 750 mg See Rx Instructions .Route 1 10/30/23 tablet,extended release 24 hr .COMPLEX #180 tabs losartan 50 mg tablet See Rx Instructions .Route 1 10/30/23 .COMPLEX #90 tabs lovastatin 40 mg tablet See Rx Instructions .Route 1 10/30/23 .COMPLEX #90 tabs omeprazole 20 mg capsule,delayed 20 mg PO BID #180 cap s 08/30/24 release paroxetine HCl 40 mg tablet See Rx Instructions .Route 08/30/24 .COMPLEX #90 tabs potassium chloride 10 mEq See Rx Instructions .Route 1 10/30/23 capsule,extended release .COMPLEX #90 caps diphenhydramine HCl 25 mg capsule See Rx Instructions .Route 11/01/24 (Banophen) .COMPLEX #60 caps ergocalciferol (vitamin D2) 1,250 See Rx Instructions .Route 11/01/24 mcg (50,000 unit) capsule .COMPLEX #2 caps enoxaparin 30 mg/0.3 mL 30 mg (0.3 mL) SUBCUT DAILY Blood 12/11/24 subcutaneous syringe (Lovenox) Clot Prevention 35 days #10.5 mL calcium 600 mg (as 1 tab PO BID 30 days #60 tab s 12/12/24 carbonate)-vitamin D3 10 mcg (400 unit) tablet hydrocortisone 1 % topical ointment 1 applic topical D AILY #28.35 grams 12/12/24 oxycodone 15 mg tablet 15 mg PO Q4H PRN Pain 7 days #42 12/12/24 tabs polysaccharide iron complex 150 mg 150 mg PO BIDWM 30 days #60 caps 12/12/24 iron capsule (Ferrex) prednisone 20 mg tablet 20 mg PO DAILY 5 days #5 tab s 12/12/24 Allergies Allergy/AdvReac Type Severity Reaction Status Date / Time diclofenac (From Voltaren) Allergy Unknown UNKNOWN Verified 12/07/24 03:29 hydromorphone (From Dilaudid) Allergy Unknown RASH Verified 12/07/24 03:29 hydroxyzine Allergy Unknown SEIZURE Verified 12/07/24 03:29 varenicline (From Chantix) Allergy Unknown UNKNOWN Verified 12/07/24 03:29 venlafaxine (From Effexor) Allergy Unknown UNKNOWN Verified 12/07/24 03:29 Review of Systems General: Reports: 10 or more systems reviewed and unremarkable except in HPI and below [facility] ED PFSH: Medical History Enrolled in chronic care management GERD (gastroesophageal reflux disease) Vitamin D deficiency Osteoarthritis COPD (chronic obstructive pulmonary disease) Hypertension Social History Smoking and tobacco/nicotine status: current every day tobacco/nicotine user (1 PPD) cigarettes Packs smoked per day: 1 Years cigarettes smoked: 43 Second hand smoke exposure: No Alcohol intake: never Substance/Drug Use: never Lives independently: Yes Household members: none service: No Current occupational status: disabled Current gender identity: Male Physical Exam Const: COMMON NORMALS: no acute distress, average body habitus, patient oriented x3, no limitations, healthy appearing, alert and well nourished HENMT: COMMON NORMALS: normocephalic, atraumatic, hearing grossly normal bilaterally, external ears normal, Normal external nose present, moist oral mucous membranes and oropharynx normal HEAD & SCALP: normocephalic and atraumatic NOSE: Normal external nose present EXTERNAL EAR: Yes external ears normal Eye: COMMON NORMALS: Equal, round and reactive pupils present, EOMs intact bilaterally, conjunctivae normal and no scleral icterus CONJUNCTIVA: Yes conjunctivae normal PUPIL: Yes Equal, round and reactive pupils present Neck/C-Spine: COMMON NORMALS: full ROM, no lymphadenopathy, supple, no meningeal signs, no JVD and Thyroid normal THYROID: Thyroid normal Chest: COMMONS NORMALS: normal inspection of the chest and normal palpation of entire chest wall Resp: COMMON NORMALS: normal respiratory effort, No retractions, No use of accessory muscles and clear to auscultation bilaterally AUSCULTATION: clear to auscultation bilaterally Cardio: COMMON NORMALS: no JVD, regular rate, regular rhythm, S1 normal heart sound present, S2 normal heart sound present, No gallops present (Cardio), No clicks present (Cardio), No murmurs present (Cardio) and No rub (Cardio) RATE: regular rate RHYTHM: regular rhythm HEART SOUNDS: S1 normal heart sound present and S2 normal heart sound present GI: COMMON NORMALS: Normal to inspection, nondistended, normoactive bowel sounds present, Soft to palpation, non-tender, No hepatosplenomegaly present and no masses PALPATION: Yes Soft to palpation and Yes No hepatosplenomegaly present Extremity: NARRATIVE EXTREMITY EXAM: Pain with palpation over right greater trochanter area. No obvious deformity or crepitus noted Neuro: COMMON NORMALS: patient oriented x3 SENSORIUM/ORIENTATION: Yes alert MENINGEAL SIGNS: Yes no meningeal signs Course Vital Signs: Vital signs: Vital Signs Temperature 97.9 F 12/13/24 17:48 Pulse Rate 69 12/13/24 19:30 Respiratory Rate 16 12/13/24 17:48 Blood Pressure 111/68 12/13/24 19:30 Pulse Oximetry 98 12/13/24 19:30 Oxygen Delivery Me thod Room Air 12/13/24 17:48 MDM - Extremity (Nontraumatic) Medical Decision Making Right hip and pelvis x-ray showed no new, status post ORIF with intramedullary sol, patient be discharged back to senior living. Medical Records I reviewed the patient's medical records. Lab Data I reviewed the patient's lab results. Radiology Impressions Hip/Pelvis X-Ray 12/13/24 17:57 IMPRESSION: Status post ORIF with an intramedullary sol with 2 interlocking screws in the proximal right femur. All radiology interpretation(s) finalized by discharge Discharge Plan Discharge Patient Disposition: Home Clinical Impression: Fall, Acute pain of right hip Condition: Stable Prescriptions: No Action magnesium oxide 400 mg (241.3 mg magnesium) tablet See Rx Instructions .ROUTE .COMPLEX Qty: 180 1RF Dose Instruction: TAKE ONE TABLET BY MOUTH TWICE DAILY Rx Instructions: TAKE ONE TABLET BY MOUTH TWICE DAILY nitroglycerin 0.4 mg tablet, sublingual See Rx Instructions .ROUTE .COMPLEX Qty: 25 1RF Dose Instruction: DISSOLVE 1 TABLET UNDER THE TONGUE EVERY 5 MINUTES NEEDED FOR CHEST PAIN. DO NOT EXCEED A TOTAL OF 3 DOSES IN 15 MINUTES. Rx Instructions: DISSOLVE 1 TABLET UNDER THE TONGUE EVERY 5 MINUTES NEEDED FOR CHEST PAIN. DO NOT EXCEED A TOTAL OF 3 DOSES IN 15 MINUTES. ondansetron HCl 8 mg tablet See Rx Instructions .ROUTE .COMPLEX Qty: 30 0RF Dose Instruction: TAKE ONE TABLET BY MOUTH EVERY 8 HOURS NEEDED FOR NAUSEA AND FOR VOMITING Rx Instructions: TAKE ONE TABLET BY MOUTH EVERY 8 HOURS NEEDED FOR NAUSEA AND FOR VOMITING aspirin 81 mg tablet,delayed release (DR/EC) See Rx Instructions .ROUTE .COMPLEX Qty: 90 1RF Dose Instruction: TAKE ONE TABLET BY MOUTH DAILY. Rx Instructions: TAKE ONE TABLET BY MOUTH DAILY. albuterol sulfate [Ventolin HFA] 90 mcg/actuation HFA aerosol inhaler See Rx Instructions .ROUTE .COMPLEX Qty: 18 2RF Dose Instruction: INHALE TWO PUFFS BY MOUTH EVERY 6 HOURS NEEDED FOR SHORTNESS OF BREATH OR FOR WHEEZING Rx Instructions: INHALE TWO PUFFS BY MOUTH EVERY 6 HOURS NEEDED FOR SHORTNESS OF BREATH OR FOR WHEEZING cetirizine 10 mg tablet See Rx Instructions .ROUTE .COMPLEX Qty: 90 1RF Dose Instruction: TAKE ONE TABLET BY MOUTH EVERY DAY. Rx Instructions: TAKE ONE TABLET BY MOUTH EVERY DAY. buspirone 10 mg tablet See Rx Instructions .ROUTE .COMPLEX Qty: 270 1RF Dose Instruction: TAKE ONE TABLET BY MOUTH THREE TIMES DAILY Rx Instructions: TAKE ONE TABLET BY MOUTH THREE TIMES DAILY omeprazole 20 mg capsule,delayed release(DR/EC) 20 mg PO BID Qty: 180 1RF baclofen 20 mg tablet See Rx Instructions .ROUTE .COMPLEX Qty: 180 1RF Dose Instruction: TAKE ONE TABLET BY MOUTH TWICE DAILY Rx Instructions: TAKE ONE TABLET BY MOUTH TWICE DAILY potassium chloride 10 mEq capsule, extended release See Rx Instructions .ROUTE .COMPLEX Qty: 90 1RF Dose Instruction: TAKE ONE CAPSULE BY MOUTH EVERY DAY Rx Instructions: TAKE ONE CAPSULE BY MOUTH EVERY DAY levetiracetam 750 mg tablet extended release 24 hr See Rx Instructions .ROUTE .COMPLEX Qty: 180 1RF Dose Instruction: TAKE ONE TABLET BY MOUTH EVERY TWELVE HOURS Rx Instructions: TAKE ONE TABLET BY MOUTH EVERY TWELVE HOURS lovastatin 40 mg tablet See Rx Instructions .ROUTE .COMPLEX Qty: 90 1RF Dose Instruction: TAKE ONE TABLET BY MOUTH EVERY DAY Rx Instructions: TAKE ONE TABLET BY MOUTH EVERY DAY paroxetine HCl 40 mg tablet See Rx Instructions .ROUTE .COMPLEX Qty: 90 1RF Dose Instruction: TAKE ONE TABLET BY MOUTH EVERY DAY Rx Instructions: TAKE ONE TABLET BY MOUTH EVERY DAY losartan 50 mg tablet See Rx Instructions .ROUTE .COMPLEX Qty: 90 1RF Dose Instruction: TAKE ONE TABLET BY MOUTH EVERY DAY Rx Instructions: TAKE ONE TABLET BY MOUTH EVERY DAY furosemide 20 mg tablet See Rx Instructions .ROUTE .COMPLEX Qty: 90 1RF Dose Instruction: TAKE ONE TABLET BY MOUTH EVERY MORNING Rx Instructions: TAKE ONE TABLET BY MOUTH EVERY MORNING diphenhydramine HCl [Banophen] 25 mg capsule See Rx Instructions .ROUTE .COMPLEX Qty: 60 0RF Dose Instruction: TAKE ONE CAPSULE BY MOUTH EVERY 6 HOURS NEEDED FOR ALLERGY SYMPTOMS Rx Instructions: TAKE ONE CAPSULE BY MOUTH EVERY 6 HOURS NEEDED FOR ALLERGY SYMPTOMS ergocalciferol (vitamin D2) 1,250 mcg (50,000 unit) capsule See Rx Instructions .ROUTE .COMPLEX Qty: 2 0RF Dose Instruction: TAKE ONE CAPSULE BY MOUTH WEEKLY Rx Instructions: TAKE ONE CAPSULE BY MOUTH WEEKLY enoxaparin [Lovenox] 30 mg/0.3 mL syringe 30 mg SUBCUT DAILY 35 Days Qty: 10.5 0RF polysaccharide iron complex [Ferrex 150] 150 mg iron Capsule 150 mg PO BIDWM 30 Days Qty: 60 0RF calcium carbonate-vitamin D3 600 mg-10 mcg (400 unit) Tablet 1 tab PO BID 30 Days Qty: 60 0RF hydrocortisone 1 % ointment 1 applic topical DAILY Qty: 28.35 0RF prednisone 20 mg tablet 20 mg PO DAILY 5 Days Qty: 5 0RF oxycodone 15 mg tablet 15 mg PO Q4H PRN (Reason: Pain) 7 Days Qty: 42 0RF Discharge Orders: Discharge ED (Routine); Ordered 12/13/24 Ordered By: Brock Arzola Referrals: Fay Hernandez FNP [Primary Care Provider] - 1 week Patient Instructions: Fall Prevention for Older Adults (ED) Activity Restrictions/Additional Instructions: Your evaluation in the ER by clinical exam and x-ray of the right hip and pelvis showed no acute abnormality other than postop changes. Please continue taking your current medication as directed. Please follow-up with your family practice additional the next 7 days for further evaluation and treatment. Please continue to use fall precautions and all the suggestions from your orthopedic doctor about hip precautions. Thank you for choosing [facility] for your healthcare needs today. Please realize that you were seen in the emergency department and that we are providing you with an emergency medical screening exam and this may not be a complete and all exclusive of all testing and/or medical workup we may need to determine your element or severity of your illness. It is very important that you follow-up as instructed with your primary care provider or specialist for the additional evaluation and to discuss your medical treatment plan. You may return to the emergency department should you have concerns or if your condition changes or worsens in any way. Print Language: Uzbek Coding Level of Care Code ED Content Manager for Timur Baxter
== END 2024-12-13 22:23 | disposition home or self-care (01) ==
PROVIDERS: Emergency Provider Emergency Medicine; PCP Nurse Practitioner Family
DX: M25.551 Pain in right hip (principal); W19.XXXA Unspecified fall, initial encounter; F17.210 Nicotine dependence, cigarettes, uncomplicated; J44.9 Chronic obstructive pulmonary disease, unspecified; I10 Essential (primary) hypertension
CPT/HCPCS: 73502; 99283

== ENCOUNTER → 2024-12-26 10:58 | Outpatient (BNVA) | payer MEDICARE, MEDICAID, SELFPAY | PROVIDERS: PCP Nurse Practitioner Family; Visit Provider Physician Assistant | DX: S72.001D Fracture of unspecified part of neck of right femur, subsequent encounter for closed fracture with routine healing (principal); X58.XXXD Exposure to other specified factors, subsequent encounter; Z98.890 Other specified postprocedural states | CPT/HCPCS: 73502; 99024 ==

== ENCOUNTER 2025-01-29 18:05 | Emergency (ER) | payer MEDICARE, MEDICAID, SELFPAY ==
--- NOTE | 2025-01-29 18:08 | XRR_ITS ---
PROCEDURE INFORMATION: Exam: XR Left Ankle Exam date and time: 01/29/2025 7:03 PM Age: 69 years old Clinical indication: Injury or trauma; Fall; Blunt trauma; Ankle; Left TECHNIQUE: Imaging protocol: Radiologic exam of the left ankle. Views: 3 or more views. COMPARISON: CR (LOW EXM, ) 01/29/2025 7:00 PM FINDINGS: Bones/joints: Subtle lucency through the inferior tip of the lateral malleolus suspicious for a nondisplaced avulsion fracture. Ankle mortise is otherwise intact. Soft tissues: Prominent diffuse soft tissue edema. XR/XR ankle LT min 3V* [id number] IMPRESSION: 1. Suspected subtle nondisplaced avulsion fracture of the inferior tip of the lateral malleolus.
--- NOTE | 2025-01-29 18:08 | XRR_ITS ---
PROCEDURE INFORMATION: Exam: XR Left Foot Exam date and time: 01/29/2025 7:00 PM Age: 69 years old Clinical indication: Injury or trauma; Fall; Blunt trauma; Foot; Left TECHNIQUE: Imaging protocol: Radiologic exam of the left foot. Views: 3 or more views. COMPARISON: No relevant prior studies available. FINDINGS: Bones/joints: No evidence of acute fracture or subluxation. Tarsometatarsal alignment is maintained. There is pes cavus. Hammertoe deformities. Overlapping of the great toe and 2nd toe noted. Moderate hallux valgus. Bony demineralization compatible with osteopenia or osteoporosis. Soft tissues: No gross soft tissue abnormality. XR/XR foot LT min 3V* [id number] IMPRESSION: 1. No evidence of acute fracture or subluxation. If there is ongoing clinical suspicion for traumatic injury, consider correlation with CT.
[2025-01-29 18:25] VITALS: BP 95/56; PULSE 87; TEMP 36.9; O2SAT 94; BMI 18.6
[2025-01-29 19:14] VITALS: RESP 18
[2025-01-29] MEDS: morphine 4 mg/mL SDV 1 mL IM (19:14)
--- NOTE | 2025-01-29 19:55 | ED_ITS ---
HPI - Extremity Problem General: Chief complaint: Extremity Problem,Nontraumatic Stated complaint: Left foot injury Time Seen by Provider: 01/29/25 18:53 Source: patient Mode of arrival: ambulatory Limitations: no limitations History of Present Illness: Patient is a 69-year-old male with past medical history of COPD and osteoarthritis who presents the emergency department planing of left ankle pain for the past few days. States the pain and swelling to his left lateral ankle began Wednesday, he thinks he may have fell ultimately does not remember how he injured it. He recently was also discharged from [facility] where he was recovering status post right hip surgery. Normally ambulatory with a cane and/or walker, has been taking oxycodone that he chronically takes for pain. States he has been unable to walk now secondary to the pain. No previous fractures or surgeries to the left foot. MD Complaint: joint pain Onset (ago): day(s) Pain Consistency: constant Location: left and lower extremity (Ankle) Exacerbating factors: weight bearing and walking Associated symptoms: Deny chest pain, fever(s) or rash Related Data Previous Rx's ?Medication ?Instructions ?Recorded nitroglycerin 0.4 mg sublingual See Rx Instructions .R oute 07/20/22 tablet .COMPLEX #25 tabs magnesium oxide 400 mg (241.3 mg See Rx Instructions . Route 01/11/23 magnesium) tablet .COMPLEX #180 tabs ondansetron HCl 8 mg tablet See Rx Instructions .Route 11/21/23 .COMPLEX #30 tabs albuterol sulfate 90 mcg/actuation See Rx Instructions .Route 04/10/24 aerosol inhaler (Ventolin HFA) .COMPLEX #18 grams cetirizine 10 mg tablet See Rx Instructions .Route 1 10/14/23 .COMPLEX #90 tabs baclofen 20 mg tablet See Rx Instructions .Route 1 10/30/23 .COMPLEX #180 tabs buspirone 10 mg tablet See Rx Instructions .Route 1 10/30/23 .COMPLEX #270 tabs furosemide 20 mg tablet See Rx Instructions .Route 1 10/30/23 .COMPLEX #90 tabs levetiracetam 750 mg See Rx Instructions .Route 1 10/30/23 tablet,extended release 24 hr .COMPLEX #180 tabs losartan 50 mg tablet See Rx Instructions .Route 1 10/30/23 .COMPLEX #90 tabs lovastatin 40 mg tablet See Rx Instructions .Route 1 10/30/23 .COMPLEX #90 tabs omeprazole 20 mg capsule,delayed 20 mg PO BID #180 cap s 08/30/24 release paroxetine HCl 40 mg tablet See Rx Instructions .Route 08/30/24 .COMPLEX #90 tabs potassium chloride 10 mEq See Rx Instructions .Route 1 10/30/23 capsule,extended release .COMPLEX #90 caps diphenhydramine HCl 25 mg capsule See Rx Instructions .Route 11/01/24 (Banophen) .COMPLEX #60 caps ergocalciferol (vitamin D2) 1,250 See Rx Instructions .Route 11/01/24 mcg (50,000 unit) capsule .COMPLEX #2 caps hydrocortisone 1 % topical ointment 1 applic topical D AILY #28.35 grams 12/12/24 oxycodone 15 mg tablet 15 mg PO Q4H PRN Pain 7 days #42 12/12/24 tabs aspirin 81 mg tablet,delayed See Rx Instructions .Rout e 12/18/24 release .COMPLEX #30 tabs apixaban 2.5 mg tablet (Eliquis) 2.5 mg PO BID dvt ppx 30 days #60 12/29/24 tabs Allergies Allergy/AdvReac Type Severity Reaction Status Date / Time diclofenac (From Voltaren) Allergy Unknown UNKNOWN Verified 01/29/25 18:31 hydromorphone (From Dilaudid) Allergy Unknown RASH Verified 01/29/25 18:31 hydroxyzine Allergy Unknown SEIZURE Verified 01/29/25 18:31 varenicline (From Chantix) Allergy Unknown UNKNOWN Verified 01/29/25 18:31 venlafaxine (From Effexor) Allergy Unknown UNKNOWN Verified 01/29/25 18:31 Review of Systems General: Reports: 10 or more systems reviewed and unremarkable except in HPI and below Const: Denies: fever(s) or chills Card: Denies: chest pain Resp: Denies: dyspnea or productive cough GI: Denies: abdominal pain, nausea, vomiting or diarrhea : Denies: flank pain Musc: Reports: joint pain and joint swelling; Denies: neck pain, back pain, extremity pain, extremity swelling, joint redness, joint warmth, limited range of motion or muscle weakness Skin/Breast: Denies: rash Neuro: Denies: headache(s), numbness in extremities or weakness in extremities PFSH ED PFSH: Medical History Enrolled in chronic care management GERD (gastroesophageal reflux disease) Vitamin D deficiency Osteoarthritis COPD (chronic obstructive pulmonary disease) Hypertension Social History Smoking and tobacco/nicotine status: current every day tobacco/nicotine user cigarettes Packs smoked per day: 1 Years cigarettes smoked: 43 Second hand smoke exposure: No Alcohol intake: never Substance/Drug Use: never Lives independently: Yes Household members: none service: No Current occupational status: disabled Current gender identity: Male Physical Exam Const: COMMON NORMALS: no acute distress, patient oriented x3, no limitations, healthy appearing, alert and well nourished HENMT: COMMON NORMALS: normocephalic and atraumatic HEAD & SCALP: normocephalic and atraumatic Neck/C-Spine: COMMON NORMALS: full ROM, supple and no meningeal signs Resp: COMMON NORMALS: normal respiratory effort, No use of accessory muscles and clear to auscultation bilaterally AUSCULTATION: clear to auscultation bilaterally Cardio: COMMON NORMALS: regular rate and regular rhythm RATE: regular rate RHYTHM: regular rhythm Extremity: COMMON NORMALS: capillary refill normal NARRATIVE EXTREMITY EXAM: Moderate swelling noted to the left lateral malleolus. Reasonable tenderness to left lateral malleolus. Chronic deformity of distal digits secondary to arthritis. Dorsalis pedis and posterior tibial pulses palpable. Limited range of motion at the ankle joint secondary to pain. Distal neurovascular exam intact. Neuro: COMMON NORMALS: patient oriented x3, moves all extremities, no focal motor deficits and no sensory deficits noted SENSORIUM/ORIENTATION: Yes alert MENINGEAL SIGNS: Yes no meningeal signs Skin: COMMON NORMALS: no rashes or lesions noted GENERAL SKIN EXAM: no r ashes or lesions noted Course Vital Signs: Vital signs: Vital Signs Temperature 98.5 F 01/29/25 18:25 Pulse Rate 87 01/29/25 18:25 Respiratory Rate 18 01/29/25 19:14 Blood Pressure 95/56 01/29/25 18:25 Pulse Oximetry 94 01/29/25 18:25 Oxygen Delivery Me thod Room Air 01/29/25 18:25 MDM - Extremity (Nontraumatic) Medical Decision Making Patient presenting with left ankle pain and swelling since Wednesday. Does not recall an initial inciting event. On exam there is swelling and tenderness to the left lateral ankle, and an x-ray of the ankle does show a subtle avulsion fracture. Neurovascular exam was intact. Morphine given here for pain, chronically takes oxycodone, notably more comfortable on recheck. He will be placed in a posterior short leg splint with stirrup, he had no proximal fibular pain. Post splint neurovascular exam intact, will be referred to podiatry for further evaluation. Lab Data Radiology Impressions Ankle X-Ray 01/29/25 18:08 IMPRESSION: 1. Suspected subtle nondisplaced avulsion fracture of the inferior tip of the lateral malleolus. Foot X-Ray 01/29/25 18:08 IMPRESSION: 1. No evidence of acute fracture or subluxation. If there is ongoing clinical suspicion for traumatic injury, consider correlation with CT. All radiology interpretation(s) finalized by discharge Discharge Plan Discharge Patient Disposition: Home Clinical Impression: Avulsion fracture of ankle Condition: Stable Prescriptions: No Action magnesium oxide 400 mg (241.3 mg magnesium) tablet See Rx Instructions .ROUTE .COMPLEX Qty: 180 1RF Dose Instruction: TAKE ONE TABLET BY MOUTH TWICE DAILY Rx Instructions: TAKE ONE TABLET BY MOUTH TWICE DAILY nitroglycerin 0.4 mg tablet, sublingual See Rx Instructions .ROUTE .COMPLEX Qty: 25 1RF Dose Instruction: DISSOLVE 1 TABLET UNDER THE TONGUE EVERY 5 MINUTES NEEDED FOR CHEST PAIN. DO NOT EXCEED A TOTAL OF 3 DOSES IN 15 MINUTES. Rx Instructions: DISSOLVE 1 TABLET UNDER THE TONGUE EVERY 5 MINUTES NEEDED FOR CHEST PAIN. DO NOT EXCEED A TOTAL OF 3 DOSES IN 15 MINUTES. ondansetron HCl 8 mg tablet See Rx Instructions .ROUTE .COMPLEX Qty: 30 0RF Dose Instruction: TAKE ONE TABLET BY MOUTH EVERY 8 HOURS NEEDED FOR NAUSEA AND FOR VOMITING Rx Instructions: TAKE ONE TABLET BY MOUTH EVERY 8 HOURS NEEDED FOR NAUSEA AND FOR VOMITING albuterol sulfate [Ventolin HFA] 90 mcg/actuation HFA aerosol inhaler See Rx Instructions .ROUTE .COMPLEX Qty: 18 2RF Dose Instruction: INHALE TWO PUFFS BY MOUTH EVERY 6 HOURS NEEDED FOR SHORTNESS OF BREATH OR FOR WHEEZING Rx Instructions: INHALE TWO PUFFS BY MOUTH EVERY 6 HOURS NEEDED FOR SHORTNESS OF BREATH OR FOR WHEEZING cetirizine 10 mg tablet See Rx Instructions .ROUTE .COMPLEX Qty: 90 1RF Dose Instruction: TAKE ONE TABLET BY MOUTH EVERY DAY. Rx Instructions: TAKE ONE TABLET BY MOUTH EVERY DAY. buspirone 10 mg tablet See Rx Instructions .ROUTE .COMPLEX Qty: 270 1RF Dose Instruction: TAKE ONE TABLET BY MOUTH THREE TIMES DAILY Rx Instructions: TAKE ONE TABLET BY MOUTH THREE TIMES DAILY omeprazole 20 mg capsule,delayed release(DR/EC) 20 mg PO BID Qty: 180 1RF baclofen 20 mg tablet See Rx Instructions .ROUTE .COMPLEX Qty: 180 1RF Dose Instruction: TAKE ONE TABLET BY MOUTH TWICE DAILY Rx Instructions: TAKE ONE TABLET BY MOUTH TWICE DAILY potassium chloride 10 mEq capsule, extended release See Rx Instructions .ROUTE .COMPLEX Qty: 90 1RF Dose Instruction: TAKE ONE CAPSULE BY MOUTH EVERY DAY Rx Instructions: TAKE ONE CAPSULE BY MOUTH EVERY DAY levetiracetam 750 mg tablet extended release 24 hr See Rx Instructions .ROUTE .COMPLEX Qty: 180 1RF Dose Instruction: TAKE ONE TABLET BY MOUTH EVERY TWELVE HOURS Rx Instructions: TAKE ONE TABLET BY MOUTH EVERY TWELVE HOURS lovastatin 40 mg tablet See Rx Instructions .ROUTE .COMPLEX Qty: 90 1RF Dose Instruction: TAKE ONE TABLET BY MOUTH EVERY DAY Rx Instructions: TAKE ONE TABLET BY MOUTH EVERY DAY paroxetine HCl 40 mg tablet See Rx Instructions .ROUTE .COMPLEX Qty: 90 1RF Dose Instruction: TAKE ONE TABLET BY MOUTH EVERY DAY Rx Instructions: TAKE ONE TABLET BY MOUTH EVERY DAY losartan 50 mg tablet See Rx Instructions .ROUTE .COMPLEX Qty: 90 1RF Dose Instruction: TAKE ONE TABLET BY MOUTH EVERY DAY Rx Instructions: TAKE ONE TABLET BY MOUTH EVERY DAY furosemide 20 mg tablet See Rx Instructions .ROUTE .COMPLEX Qty: 90 1RF Dose Instruction: TAKE ONE TABLET BY MOUTH EVERY MORNING Rx Instructions: TAKE ONE TABLET BY MOUTH EVERY MORNING diphenhydramine HCl [Banophen] 25 mg capsule See Rx Instructions .ROUTE .COMPLEX Qty: 60 0RF Dose Instruction: TAKE ONE CAPSULE BY MOUTH EVERY 6 HOURS NEEDED FOR ALLERGY SYMPTOMS Rx Instructions: TAKE ONE CAPSULE BY MOUTH EVERY 6 HOURS NEEDED FOR ALLERGY SYMPTOMS ergocalciferol (vitamin D2) 1,250 mcg (50,000 unit) capsule See Rx Instructions .ROUTE .COMPLEX Qty: 2 0RF Dose Instruction: TAKE ONE CAPSULE BY MOUTH WEEKLY Rx Instructions: TAKE ONE CAPSULE BY MOUTH WEEKLY aspirin 81 mg tablet,delayed release (DR/EC) See Rx Instructions .ROUTE .COMPLEX Qty: 30 0RF Dose Instruction: TAKE ONE TABLET BY MOUTH DAILY. Rx Instructions: TAKE ONE TABLET BY MOUTH DAILY. Eliquis 2.5 mg tablet 2.5 mg PO BID 30 Days Qty: 60 0RF hydrocortisone 1 % ointment 1 applic topical DAILY Qty: 28.35 0RF oxycodone 15 mg tablet 15 mg PO Q4H PRN (Reason: Pain) 7 Days Qty: 42 0RF Discharge Orders: Discharge ED (Routine); Ordered 01/29/25 Ordered By: Glenn Hernández Referrals: Fay Hernandez FNP [Primary Care Provider] - Patient Instructions: Ankle Fracture (ED) Activity Restrictions/Additional Instructions: Splint and nonweightbearing. Continue taking your pain medication at home. Elevation of the extremity. Follow-up with podiatry, await call to schedule appointment. Please return with any severe worsening of pain or other concerns that you have. Print Language: Wolof Coding Level of Care Code ED [employer] for Timur Baxter
[2025-01-29 20:10] VITALS: BP 132/79; PULSE 80; O2SAT 94
--- NOTE | 2025-01-31 07:49 | DCPLANNER ---
Message sent to Podiatry for follow up/ Referral.Patient presenting with left ankle pain and swelling since Wednesday. Does not recall an initial inciting event. On exam there is swelling and tenderness to the left lateral ankle, and an x-ray of the ankle does show a subtle avulsion fracture. Neurovascular exam was intact. Morphine given here for pain, chronically takes oxycodone, notably more comfortable on recheck. He will be placed in a posterior short leg splint with stirrup, he had no proximal fibular pain. Post splint neurovascular exam intact, will be referred to podiatry for further evaluation.
--- NOTE | 2025-01-31 09:27 | DCPLANNER ---
Called left message with patient - Tried to schedule for podiatry-
== END 2025-01-29 20:12 | disposition home or self-care (01) ==
PROVIDERS: Emergency Provider Physician Assistant; PCP Nurse Practitioner Family
DX: S82.892A Other fracture of left lower leg, initial encounter for closed fracture (principal); Z79.82 Long term (current) use of aspirin; Z79.01 Long term (current) use of anticoagulants; F17.210 Nicotine dependence, cigarettes, uncomplicated; J44.9 Chronic obstructive pulmonary disease, unspecified; I10 Essential (primary) hypertension; X58.XXXA Exposure to other specified factors, initial encounter
CPT/HCPCS: 29515; 73610; 73630; 96372; 99284; J2270

== ENCOUNTER → 2025-05-30 15:18 | Outpatient (BNVA) | payer MEDICARE, MEDICAID, SELFPAY | PROVIDERS: PCP Nurse Practitioner Family; Visit Provider Nurse Practitioner Family | DX: I10 Essential (primary) hypertension (principal); E55.9 Vitamin D deficiency, unspecified; R73.9 Hyperglycemia, unspecified | CPT/HCPCS: 80053; 80061; 82306; 82607; 83036; 85025 ==